=== PATIENT | male | born 1970 | race Caucasian/White ===

== ENCOUNTER → 2020-08-02 09:35 | Outpatient (BNVA) | payer MEDICAID, SELFPAY | PROVIDERS: PCP Nurse Practitioner Family; Visit Provider Urology | DX: Z76.89 Persons encountering health services in other specified circumstances (principal) ==

== ENCOUNTER 2021-04-23 07:53 | Outpatient (REF) | payer OTHER, SELFPAY ==
[2021-04-23 11:33] LABS: PSA,Total (Free>4and<10) 0.52 ng/mL (0.00-4.00)
== END 2021-04-23 07:54 | disposition home or self-care (01) ==
LOC: HO.LAB 07:53
PROVIDERS: Visit Provider Urology
DX: Z12.5 Encounter for screening for malignant neoplasm of prostate (principal); N40.1 Benign prostatic hyperplasia with lower urinary tract symptoms; N13.8 Other obstructive and reflux uropathy
CPT/HCPCS: 36415; 84153

== ENCOUNTER → 2021-05-06 08:38 | Outpatient (BNVA) | payer OTHER, SELFPAY | PROVIDERS: PCP Internal Medicine; Visit Provider Urology ==

== ENCOUNTER 2021-08-13 09:21 | Outpatient (REF) | payer OTHER, SELFPAY ==
[2021-08-13 09:50] LABS: MANUAL DIFF FLAG NO
[2021-08-13 09:58] LABS: Hematocrit 45.8 % (42.0-52.0); Hemoglobin 16.1 g/dl (14.0-18.0); Mean Corpuscular HGB Conc 35.2 g/dl (31.0-36.0); Mean Corpuscular Volume 91.1 fL (80.0-98.0); Red Blood Count 5.03 X10*6/uL (4.60-5.80); White Blood Count 6.6 X10*3/uL (4.8-10.8)
[2021-08-13 09:59] LABS: Basophils Absolute Auto 0.1 X10*3/uL (0.0-0.2); Basophils Percent Auto 0.8 % (0-2); Eosinophils Absolute Auto 0.4 X10*3/uL (0.0-0.4); Eosinophils Percent Auto 6.4 % (0-4); Imm Gran Abs Auto 0.02 X10*3/uL (0.00-0.03); Imm Gran Pct Auto 0.3 % (0.0-0.4); Lymphocytes Absolute Auto 2.1 X10*3/uL (1.2-4.9); Lymphocytes Percent Auto 31.6 % (20-40); Mean Platelet Volume 10.1 fL (9.4-12.4); Monocytes Absolute Auto 0.5 X10*3/uL (0.1-1.2); Neutrophils Absolute Auto 3.5 x10*3/uL (2.0-8.3); Neutrophils Percent Auto 53.9 % (45-73); Platelet Count 184 X10*3/uL (160-400); Red Cell Distribution Width 12.5 % (11.0-16.0)
--- NOTE | 2021-08-13 10:16 | ECG_ITS ---
Test Reason : qtc check Blood Pressure : / mmHG Vent. Rate : 108 BPM Atrial Rate : 108 BPM P-R Int : 114 ms QRS Dur : 070 ms QT Int : 320 ms P-R-T Axes : 047 010 016 degrees QTc Int : 428 ms Sinus tachycardia Cannot rule out Inferior infarct , age undetermined Abnormal ECG When compared with ECG of 03-DEC-2017 07:28, No significant change was found Referred By: MITALI MOORE Electronically Signed By:Kelvin Ramírez
[2021-08-13 10:54] LABS: Estimated Average Glucose 126 mg/dL
[2021-08-13 11:11] LABS: Alanine Aminotransferase 30 U/L (0-40); Albumin Level 4.4 g/dL (3.5-5.0); Alkaline Phosphatase 89 U/L (39-117); Anion Gap 15 (12-20); Aspartate Amino Transferase 25 U/L (5-37); Bilirubin Total 0.8 mg/dL (0.0-1.0); Blood Urea Nitrogen 14 mg/dL (9-16); Calcium 9.7 mg/dL (8.4-10.2); Carbon Dioxide 23 mmol/L (22-29); Chloride 106 mmol/L (96-108); Cholesterol 152 mg/dL; Estimated Glomerular Filt Rate > 60; Glucose Random 172 mg/dL (60-115); HDL Cholesterol 46 mg/dL; LDL Cholesterol Calculated 69 mg/dl; Potassium 4.6 mmol/L (3.3-5.1); Sodium 139 mmol/L (135-145); Total Protein 7.4 g/dL (6.5-8.0); Triglycerides 188 mg/dL
[2021-08-13 11:12] LABS: Thyroid Stimulating Hormone 1.58 uIU/mL (0.32-4.0)
[2021-08-13 11:29] LABS: Creatinine Urine 76.88 mg/dL; Microalbum/Creatinine Ratio Ur 6.5 ug/mg cr
== END 2021-08-13 09:22 | disposition home or self-care (01) ==
LOC: HO.LAB 09:21
PROVIDERS: Absent Provider Clinical Nurse Specialist Psychiatric/Mental Health; PCP Internal Medicine; Visit Provider Internal Medicine
DX: Z00.00 Encounter for general adult medical examination without abnormal findings (principal); E11.9 Type 2 diabetes mellitus without complications; E78.00 Pure hypercholesterolemia, unspecified; G43.909 Migraine, unspecified, not intractable, without status migrainosus; I10 Essential (primary) hypertension; N40.1 Benign prostatic hyperplasia with lower urinary tract symptoms; F25.1 Schizoaffective disorder, depressive type
CPT/HCPCS: 36415; 80053; 80061; 82043; 83036; 84443; 85025; 93005

== ENCOUNTER 2021-11-11 10:07 | Outpatient (REF) | payer OTHER, SELFPAY ==
[2021-11-11 11:03] LABS: Estimated Average Glucose 117 mg/dL; Hemoglobin A1c % 5.7 %
[2021-11-11 11:25] LABS: Alanine Aminotransferase 23 U/L (0-40); Albumin Level 4.5 g/dL (3.5-5.0); Alkaline Phosphatase 79 U/L (39-117); Anion Gap 14 (12-20); Aspartate Amino Transferase 21 U/L (5-37); Blood Urea Nitrogen 7 mg/dL (9-16); Calcium 9.7 mg/dL (8.4-10.2); Carbon Dioxide 26 mmol/L (22-29); Chloride 103 mmol/L (96-108); Estimated Glomerular Filt Rate > 60; Glucose Random 148 mg/dL (60-115); Potassium 4.8 mmol/L (3.3-5.1); Sodium 138 mmol/L (135-145); Total Protein 7.3 g/dL (6.5-8.0)
== END 2021-11-11 10:08 | disposition home or self-care (01) ==
LOC: HO.LAB 10:07
PROVIDERS: PCP Internal Medicine; Visit Provider Internal Medicine
DX: E11.9 Type 2 diabetes mellitus without complications (principal); E78.00 Pure hypercholesterolemia, unspecified; G43.909 Migraine, unspecified, not intractable, without status migrainosus; I10 Essential (primary) hypertension
CPT/HCPCS: 36415; 80053; 83036

== ENCOUNTER 2022-03-10 08:26 | Outpatient (REF) | payer OTHER, SELFPAY ==
[2022-03-10 09:21] LABS: Estimated Average Glucose 114 mg/dL; Hemoglobin A1c % 5.6 %
[2022-03-10 09:55] LABS: Alanine Aminotransferase 27 U/L (0-40); Albumin Level 4.5 g/dL (3.5-5.0); Alkaline Phosphatase 83 U/L (39-117); Anion Gap 17 (12-20); Aspartate Amino Transferase 26 U/L (5-37); Bilirubin Total 0.6 mg/dL (0.0-1.0); Blood Urea Nitrogen 7 mg/dL (9-16); Carbon Dioxide 22 mmol/L (22-29); Chloride 105 mmol/L (96-108); Estimated Glomerular Filt Rate > 60; Glucose Random 140 mg/dL (60-115); Potassium 4.2 mmol/L (3.3-5.1); Sodium 140 mmol/L (135-145); Total Protein 7.2 g/dL (6.5-8.0)
== END 2022-03-10 08:27 | disposition home or self-care (01) ==
LOC: HO.LAB 08:26
PROVIDERS: PCP Internal Medicine; Visit Provider Internal Medicine
DX: E11.9 Type 2 diabetes mellitus without complications (principal); I10 Essential (primary) hypertension
CPT/HCPCS: 36415; 80053; 83036

== ENCOUNTER → 2022-04-09 13:27 | Outpatient (BNVA) | payer OTHER, SELFPAY | PROVIDERS: PCP Internal Medicine; Visit Provider Urology | DX: N40.1 Benign prostatic hyperplasia with lower urinary tract symptoms (principal); N13.8 Other obstructive and reflux uropathy; E11.69 Type 2 diabetes mellitus with other specified complication; N52.1 Erectile dysfunction due to diseases classified elsewhere | CPT/HCPCS: 51798; 99212 ==

== ENCOUNTER 2022-10-09 08:13 | Outpatient (REF) | payer OTHER, SELFPAY ==
[2022-10-09 08:30] LABS: MANUAL DIFF FLAG NO
[2022-10-09 08:56] LABS: Basophils Absolute Auto 0.1 X10*3/uL (0.0-0.2); Basophils Percent Auto 1.2 % (0-2); Eosinophils Absolute Auto 0.4 X10*3/uL (0.0-0.4); Eosinophils Percent Auto 7.5 % (0-4); Hematocrit 45.1 % (42.0-52.0); Hemoglobin 15.8 g/dl (14.0-18.0); Imm Gran Abs Auto 0.02 X10*3/uL (0.00-0.03); Imm Gran Pct Auto 0.3 % (0.0-0.4); Lymphocytes Absolute Auto 2.1 X10*3/uL (1.2-4.9); Mean Corpuscular Hemoglobin 31.3 pg (27.0-33.0); Mean Corpuscular Volume 89.3 fL (80.0-98.0); Mean Platelet Volume 10.5 fL (9.4-12.4); Monocytes Absolute Auto 0.4 X10*3/uL (0.1-1.2); Monocytes Percent Auto 7.3 % (2-11); Neutrophils Absolute Auto 2.7 x10*3/uL (2.0-8.3); Neutrophils Percent Auto 47.7 % (45-73); Platelet Count 188 X10*3/uL (160-400); Red Blood Count 5.05 X10*6/uL (4.60-5.80); Red Cell Distribution Width 12.4 % (11.0-16.0); White Blood Count 5.7 X10*3/uL (4.8-10.8)
[2022-10-09 09:06] LABS: Estimated Average Glucose 117 mg/dL; Hemoglobin A1c % 5.7 %
[2022-10-09 09:40] LABS: Alanine Aminotransferase 21 U/L (0-40); Albumin Level 4.3 g/dL (3.5-5.0); Alkaline Phosphatase 72 U/L (39-117); Anion Gap 13 (12-20); Aspartate Amino Transferase 21 U/L (5-37); Bilirubin Total 0.9 mg/dL (0.0-1.0); Blood Urea Nitrogen 10 mg/dL (9-16); Calcium 8.9 mg/dL (8.4-10.2); Carbon Dioxide 25 mmol/L (22-29); Chloride 103 mmol/L (96-108); Cholesterol 133 mg/dL; Estimated Glomerular Filt Rate > 60; Glucose Random 118 mg/dL (60-115); HDL Cholesterol 42 mg/dL; LDL Cholesterol Calculated 67 mg/dl; Potassium 4.7 mmol/L (3.3-5.1); Sodium 136 mmol/L (135-145); Total Protein 6.9 g/dL (6.5-8.0); Triglycerides 122 mg/dL
[2022-10-09 09:43] LABS: Creatinine Urine 36.41 mg/dL; Microalbumin Urine < 5.0 mg/L
== END 2022-10-09 08:14 | disposition home or self-care (01) ==
LOC: HO.LAB 08:13
PROVIDERS: PCP Internal Medicine; Visit Provider Internal Medicine
DX: E11.9 Type 2 diabetes mellitus without complications (principal); E78.00 Pure hypercholesterolemia, unspecified; I10 Essential (primary) hypertension; R51.9 Headache, unspecified
CPT/HCPCS: 36415; 80053; 80061; 82043; 83036; 85025

== ENCOUNTER 2022-12-15 13:21 | Emergency (ER) | payer OTHER, SELFPAY ==
--- NOTE | ~2022-12-15 | XR_ITS ---
EXAMINATION: XR HIP, LEFT CLINICAL INFORMATION: Left hip pain, status post fall. COMPARISON: None available. TECHNIQUE: Two views of the left hip. FINDINGS: Bones and soft tissues are normal. No fracture. Alignment is anatomic. Hip joint space is maintained. XR/XR hip LT w PEL1V IMPRESSION: Normal left hip.
[2022-12-15 13:25] VITALS: BP 137/83; PULSE 105; RESP 18; TEMP 37.6; O2SAT 98; BMI 38.7
--- NOTE | 2022-12-15 13:25 | ED_ITS ---
HPI - Extremity Injury (Lower) General Chief Complaint: Extremity Injury, Lower Stated Complaint: L hip inj Time Seen by Provider: 12/15/22 13:53 History of Present Illness HPI Narrative: patient complains of left hip pain after a fall in the bathroom 1 week ago, it still hurts but he is able easily to walk on it in move it, he denies any back pain he has no numbness weakness or tingling no radiation of the pain no abdominal pain no chest pain no neck pain no back pain, no changes to bowel or bladder Related Data Home Medications Medication Instructions Recorded Confirmed aspirin 325 mg tablet 325 mg PO DAILY 05/06/21 atorvastatin 40 mg tablet 40 mg PO DAILY 05/06/21 benztropine 0.5 mg tablet 0.5 mg PO BID 05/06/21 blood sugar diagnostic (FreeStyle #10 ea 05/06/21 Lite Strips) [id number]-[id number] 1 cap PO Q6H PRN 05/06/21 50 mg-325 mg-40 mg capsule enalapril maleate 5 mg tablet 5 mg PO DAILY 05/06/21 ergocalciferol (vitamin D2) 1,250 1,250 mcg PO QWEEK 05/06/21 mcg (50,000 unit) capsule (Vitamin D2) fluoxetine 20 mg capsule 40 mg PO QAM 05/06/21 lancets 28 gauge (FreeStyle #100 ea 05/06/21 Lancets) loratadine 10 mg tablet 10 mg PO DAILY 05/06/21 lorazepam 0.5 mg tablet 0.5 mg PO BID PRN 05/06/21 metformin 750 mg tablet,extended 750 mg PO BID 05/06/21 release 24 hr niacin 500 mg tablet,extended 1,000 mg PO BEDTIME 05/06/21 release 24 hr omeprazole 20 mg capsule,delayed 20 mg PO DAILY 05/06/21 release perphenazine 4 mg tablet 4 mg PO BEDTIME 05/06/21 perphenazine 8 mg tablet 8 mg PO BID 05/06/21 trazodone 100 mg tablet 200 mg PO BEDTIME PRN 05/06/21 ziprasidone HCl 80 mg capsule 80 mg PO BID 05/06/21 ibuprofen 600 mg tablet 600 mg PO TID 04/09/22 lisinopril 10 1 tab PO DAILY 04/09/22 mg-hydrochlorothiazide 12.5 mg tablet propranolol 120 mg capsule,24 120 mg PO DAILY 04/09/22 hr,extended release Previous Rx's Medication Instructions Recorded tamsulosin 0.4 mg capsule 0.4 mg PO DAILY 90 days #90 caps 04/09/22 acetaminophen 325 mg capsule 650 mg PO QID PRN pain #30 caps 12/15/22 Allergies Allergy/AdvReac Type Severity Reaction Status Date / Time clindamycin Allergy Mild Severe Verified 04/09/22 13:30 Headache lactose [Lactose] AdvReac Mild LACTOSE Verified 04/09/22 13:30 INTOLERANT SEASONAL ALLERGIES Allergy Intermediate SNEEZING Uncoded 04/11/20 16:33 [facility] Past Medical History Source: nursing notes reviewed Medical History BPH (benign prostatic hyperplasia) BPH loc w urin obs/LUTS Diabetes mellitus Erectile dysfunction Essential hypertension GERD (gastroesophageal reflux disease) Migraine Schizophrenia Shortness of breath Family History Family History Father No problems noted. Mother Heart failure CVD (cardiovascular disease) Stroke Social History Social History Advance Directives: No Advance Directives Information Provided: Yes Physical Exam Vital Signs: Vital Signs: Last Vital Signs Temp 99.7 F 12/15/22 13:25 Pulse 105 H 12/15/22 13:25 Resp 18 12/15/22 13:25 BP 137/83 12/15/22 13:25 Pulse Ox 98 12/15/22 13:25 O2 Del Method Room Air 12/15/22 13:25 BMI result Body Mass Index 38.7 general appearance comfortable no distress Head is normocephalic atraumatic Neck is supple Chest wall nontender Abdomen soft nontender There is no evidence of hernia There is tenderness over the lateral aspect of upper thigh hip and pelvis, patient can easily bear weight on the left leg he has full The back there is no tenderness of soft tissue or spine and back has full range of motion Skin no lacerations or contusions Neuro no focal motor or sensory deficits, gait and balance are normal Course Course Course Narrative: RME: 52yo M w/PMHx BPH, HTN, GERD, schizophrenia, c/o left hip pain s/p slip and fall on soap Wednesday after shower. denies head trauma or LOC. denies sx prior to fall L hip w/o deformity, +mild ttp, ambulating with steady gait w/o difficulty. no erythema/ecchymosis XRs ordered Full HPI, ROS and PE to be performed by primary ED provider. Left hip x-ray was negative, exam is consistent with soft tissue injury in the area of the left hip, patient ambulates easily and has full range of motion in the leg no evidence of any significant injury now Discharge Plan Discharge Clinical Impression: Contusion of hip, left Patient Disposition: Home, Self-Care Additional Instructions: Left hip x-ray was normal there is no broken bone This is likely soft tissue bruising or strain of the muscles in the area of the left hip and should get better on its own in a reasonable amount of time Follow with your doctor orthopedist as needed Return any concerns Prescriptions: New acetaminophen 325 mg capsule 650 mg PO QID PRN (Reason: pain) Qty: 30 0RF No Action perphenazine 4 mg tablet 4 mg PO BEDTIME omeprazole 20 mg capsule,delayed release(DR/EC) 20 mg PO DAILY (DME) lancets [FreeStyle Lancets] 28 gauge misc See Rx Instructions topical BID Qty: 100 Rx Instructions: As directed fluoxetine 20 mg capsule 40 mg PO QAM (DME) FreeStyle Lite Strips Strip See Rx Instructions Not Applicable BID Qty: 10 Rx Instructions: As directed metformin 750 mg tablet extended release 24 hr 750 mg PO BID loratadine 10 mg tablet 10 mg PO DAILY perphenazine 8 mg tablet 8 mg PO BID trazodone 100 mg tablet 200 mg PO BEDTIME PRN lorazepam 0.5 mg tablet 0.5 mg PO BID PRN niacin 500 mg tablet extended release 24 hr 1,000 mg PO BEDTIME aspirin 325 mg tablet 325 mg PO DAILY benztropine 0.5 mg tablet 0.5 mg PO BID atorvastatin 40 mg tablet 40 mg PO DAILY ziprasidone HCl 80 mg capsule 80 mg PO BID enalapril maleate 5 mg tablet 5 mg PO DAILY bududwqvei-rfygbcllwrsgk-amzi 50-325-40 mg capsule 1 cap PO Q6H PRN ergocalciferol (vitamin D2) [Vitamin D2] 1,250 mcg (50,000 unit) capsule 1,250 mcg PO QWEEK ibuprofen 600 mg tablet 600 mg PO TID lisinopril-hydrochlorothiazide 10-12.5 mg tablet 1 tab PO DAILY propranolol 120 mg capsule,extended release 24 hr 120 mg PO DAILY tamsulosin 0.4 mg capsule 0.4 mg PO DAILY 90 Days Qty: 90 3RF Referrals: Jean Claude Edgar MD [Physician] - ( left hip pain)
== END 2022-12-15 15:43 | disposition home or self-care (01) ==
PROVIDERS: Emergency Provider Emergency Medicine Emergency Medical Services; PCP Internal Medicine
DX: S70.02XA Contusion of left hip, initial encounter (principal); W18.30XA Fall on same level, unspecified, initial encounter; Y93.9 Activity, unspecified; Y92.002 Bathroom of unspecified non-institutional (private) residence as the place of occurrence of the external cause; M25.552 Pain in left hip; Z91.81 History of falling; E11.9 Type 2 diabetes mellitus without complications; I10 Essential (primary) hypertension; K21.9 Gastro-esophageal reflux disease without esophagitis; N40.0 Benign prostatic hyperplasia without lower urinary tract symptoms; F20.9 Schizophrenia, unspecified
CPT/HCPCS: 73502; 99283

== ENCOUNTER 2023-01-05 08:27 | Emergency (ER) | payer OTHER, SELFPAY ==
[2023-01-05 08:29] VITALS: BP 148/88; PULSE 103; RESP 20; TEMP 36.3; O2SAT 97; BMI 40.3
--- NOTE | 2023-01-05 09:03 | ED_ITS ---
HPI - Back Pain/Injury General Chief Complaint: Back Pain/Injury Stated Complaint: Back Pain S/P Injury 01/01/23 Time Seen by Provider: 01/05/23 09:01 Source: patient Mode of arrival: ambulatory Limitations: no limitations History of Present Illness HPI Narrative: 52-year-old male history of BPH, rectal dysfunction, diabetes presenting to the emergency department complaints of mid to lower back pain status post heavy lifting on Wednesday, back pain is constant in nature however worse with movement better at rest. Patient reports this started after helping his mother move, he has never had back issues in the past. Patient denies numbness, tingling, weakness, saddle paresthesias, urinary/ bowel incontinence / retention, fevers, chills, history of IV drug use and malignancy. Related Data Home Medications Medication Instructions Recorded Confirmed aspirin 325 mg tablet 325 mg PO DAILY 05/06/21 atorvastatin 40 mg tablet 40 mg PO DAILY 05/06/21 benztropine 0.5 mg tablet 0.5 mg PO BID 05/06/21 blood sugar diagnostic (FreeStyle #10 ea 05/06/21 Lite Strips) [id number]-[id number]-[id number] 1 cap PO Q6H PRN 05/06/21 50 mg-325 mg-40 mg capsule enalapril maleate 5 mg tablet 5 mg PO DAILY 05/06/21 ergocalciferol (vitamin D2) 1,250 1,250 mcg PO QWEEK 05/06/21 mcg (50,000 unit) capsule (Vitamin D2) fluoxetine 20 mg capsule 40 mg PO QAM 05/06/21 lancets 28 gauge (FreeStyle #100 ea 05/06/21 Lancets) loratadine 10 mg tablet 10 mg PO DAILY 05/06/21 lorazepam 0.5 mg tablet 0.5 mg PO BID PRN 05/06/21 metformin 750 mg tablet,extended 750 mg PO BID 05/06/21 release 24 hr niacin 500 mg tablet,extended 1,000 mg PO BEDTIME 05/06/21 release 24 hr omeprazole 20 mg capsule,delayed 20 mg PO DAILY 05/06/21 release perphenazine 4 mg tablet 4 mg PO BEDTIME 05/06/21 perphenazine 8 mg tablet 8 mg PO BID 05/06/21 trazodone 100 mg tablet 200 mg PO BEDTIME PRN 10/12/21 ziprasidone HCl 80 mg capsule 80 mg PO BID 05/06/21 ibuprofen 600 mg tablet 600 mg PO TID 04/09/22 lisinopril 10 1 tab PO DAILY 04/09/22 mg-hydrochlorothiazide 12.5 mg tablet propranolol 120 mg capsule,24 120 mg PO DAILY 04/09/22 hr,extended release Previous Rx's Medication Instructions Recorded tamsulosin 0.4 mg capsule 0.4 mg PO DAILY 90 days #90 caps 04/09/22 acetaminophen 325 mg capsule 650 mg PO QID PRN pain #30 caps 12/15/22 cyclobenzaprine 10 mg tablet 10 mg PO BEDTIME PRN muscle spasm 01/05/23 #7 tabs ketorolac 10 mg tablet 10 mg PO TID PRN pain 5 days #15 01/05/23 tabs lidocaine 5 % topical patch 1 patch topical DAILY PRN pain #15 01/05/23 ea Allergies Allergy/AdvReac Type Severity Reaction Status Date / Time clindamycin Allergy Mild Severe Verified 01/05/23 08:33 Headache lactose [Lactose] AdvReac Mild LACTOSE Verified 01/05/23 08:33 INTOLERANT SEASONAL ALLERGIES Allergy Intermediate SNEEZING Uncoded 04/11/20 16:33 Review of Systems Review of Systems: Constitutional : No Weight loss, No Fever, No Chills, ENT/Mouth : No Hearing loss, No Ear Pain, No Nasal Congestion, No Sinus Pain, No Hoarseness, No sore throat, No Rhinorrhea, No Swallowing Difficulty Cardiovascular : No Chest Pain, No SOB Respiratory : No Cough, No Dyspnea Gastrointestinal : No Nausea, No Vomiting, No Diarrhea, No abdominal Pain, No Hematochezia, No Melena Genitourinary : No Dysuria, No Urinary Frequency, No Hematuria, No Urinary Incontinence, Musculoskeletal : positive back pain Skin : No Skin Lesions, No rash Neuro : No Weakness, No Numbness, No Paresthesias, no loss of bowel or bladder incontinence, no saddle anesthesia Yes all other systems are reviewed and are negative FORMERLY [facility], [facility] Past Medical History Attestation statement: The following information was validated with the patient. Source: old records reviewed and nursing notes reviewed Medical History BPH (benign prostatic hyperplasia) BPH loc w urin obs/LUTS Diabetes mellitus Erectile dysfunction Essential hypertension GERD (gastroesophageal reflux disease) Migraine Schizophrenia Shortness of breath Family History Family History Father No problems noted. Mother Heart failure CVD (cardiovascular disease) Stroke Social History Social History Advance Directives: No Physical Exam Vital Signs: Vital Signs: Last Vital Signs Temp 97.3 F 01/05/23 08:29 Pulse 103 H 01/05/23 08:29 Resp 20 01/05/23 08:29 BP 148/88 H 01/05/23 08:29 Pulse Ox 97 01/05/23 08:29 O2 Del Method Room Air 01/05/23 08:29 BMI result Body Mass Index 40.3 vss Appearance: Alert.? Oriented X3.? No acute distress.? Head: Normocephalic, atraumatic, no step-offs or deformities Eyes: Pupils equal, round and reactive to light.? Neck: Normal inspection.? Neck supple.? CVS: Normal heart rate and rhythm.? Pulses normal.? Respiratory: No respiratory distress.? Breath sounds normal.? Abdomen: Soft and nontender.? Skin: Skin warm and dry.? Normal skin color.? Normal skin turgor.? Extremities: No lower extremity edema.? No calf ttp. 5/5 strength to bilateral upper and lower extremities Back: No midline tenderness, no C-spine tenderness, full range of motion, no CVA tenderness bilaterally + b/l Thoracic and lumbar paraspinous tenderness. Neuro: Oriented X 3.? No motor deficit.? No sensory deficit. CN 2-12 intact . Ambulating with steady gait normal coordination. No saddle paresthesias. Course Reevaluation(s) Reevaluation #1: Patient feeling better, ambulatory around the department without difficulty. Will give him follow-up with [facility]. Again no indication for imaging as this is atraumatic back pain. Likely herniated disc or lumbar sprain/ strain/ spasm. No red flag symptoms. Educated patient on diagnosis and treatment plan, answered all question, patient verbalizes understanding. At this time patient will be discharged home, advised to return with new or worsening symptoms. Educated on worrisome signs and symptoms and when to return. At this time I feel comfortable discharge home. Time: 11:36 Medications Administered Discontinued Medications Generic Name Dose Route Start Last Admin Trade Name Freq PRN Reason Stop Dose Admin Cyclobenzaprine HCl 10 mg 01/05/23 09:06 01/05/23 09:16 Cyclobenzaprine Hcl 10 Mg Tablet PO 01/05/23 09:07 10 mg ONCE ONE Administration Ketorolac Tromethamine 30 mg 01/05/23 09:06 01/05/23 09:19 Ketorolac Tromethamine 15 Mg/Ml Vial IM 01/05/23 09:07 30 mg ONCE ONE Administration Lidocaine 1 patch 01/05/23 09:06 01/05/23 09:17 Lidocaine 4 % Patch Adh..Patch TRANSDERMA 01/05/23 09:07 1 patch ONCE ONE Administration Protocol Lidocaine 1 patch 01/05/23 09:13 01/05/23 09:17 Lidocaine 4 % Patch Adh..Patch TRANSDERMA 01/05/23 09:14 1 patch ONCE ONE Administration Protocol Morphine Sulfate 15 mg 01/05/23 10:18 01/05/23 10:59 Morphine Sulfate Immed Release 15 Mg Tablet PO 01/05/23 10:19 15 mg ONCE ONE Administration Medical Decision Making Medical Decision Making [facility] Narrative: [id number] 52-year-old male presents with back pain status post heavy lifting on Wednesday. Physical exam significant for b/l Thoracic and lumbar paraspinous tenderness. likely lumbago versus herniated disc versus lumbar/ thoracic sprain/ strain. Unlikely cauda equina, cord compression, epidural abscess. Plan Toradol, cyclobenzaprine and Lidoderm patch. Differential Diagnosis Differential Diagnoses: The differential diagnosis associated with the presentation includes likely lumbago versus herniated disc versus lumbar/ thoracic sprain/ strain. Unlikely cauda equina, cord compression, epidural abscess. Tests considered The following testing was considered but not selected: Atraumatic back pain no need for imaging. No red flag symptoms no need for MRI. Core Measures AMI core measures followed: Yes Measure exclusions: not indicated Discharge Plan Discharge Clinical Impression: Thoracolumbar back pain Patient Disposition: Home, Self-Care Instructions: Back Pain (ED) Additional Instructions: Take your medications as prescribed. If you were prescribed antibiotics today, it is important that you take your medication to their entirety, do not skip any doses, do not finish them early. Follow-up with your primary care provider this week. Return to the emergency department with new or worsening symptoms. Such as fevers, chills, chest pain, shortness of breath, nausea, vomiting, dizziness, headache, vision changes, lethargy In case of emergency call 911 Prescriptions: New cyclobenzaprine 10 mg tablet 10 mg PO BEDTIME PRN (Reason: muscle spasm) Qty: 7 0RF ketorolac 10 mg tablet 10 mg PO TID PRN (Reason: pain) 5 Days Qty: 15 0RF lidocaine 5 % adhesive patch,medicated 1 patch topical DAILY PRN (Reason: pain) Qty: 15 0RF Rx Instructions: leave on most painful area for up to 12 hrs No Action acetaminophen 325 mg capsule 650 mg PO QID PRN (Reason: pain) Qty: 30 0RF perphenazine 4 mg tablet 4 mg PO BEDTIME omeprazole 20 mg capsule,delayed release(DR/EC) 20 mg PO DAILY (DME) lancets [FreeStyle Lancets] 28 gauge misc See Rx Instructions topical BID Qty: 100 Rx Instructions: As directed fluoxetine 20 mg capsule 40 mg PO QAM (DME) FreeStyle Lite Strips Strip See Rx Instructions Not Applicable BID Qty: 10 Rx Instructions: As directed metformin 750 mg tablet extended release 24 hr 750 mg PO BID loratadine 10 mg tablet 10 mg PO DAILY perphenazine 8 mg tablet 8 mg PO BID trazodone 100 mg tablet 200 mg PO BEDTIME PRN lorazepam 0.5 mg tablet 0.5 mg PO BID PRN niacin 500 mg tablet extended release 24 hr 1,000 mg PO BEDTIME aspirin 325 mg tablet 325 mg PO DAILY benztropine 0.5 mg tablet 0.5 mg PO BID atorvastatin 40 mg tablet 40 mg PO DAILY ziprasidone HCl 80 mg capsule 80 mg PO BID enalapril maleate 5 mg tablet 5 mg PO DAILY tpkjrxqygr-ppbfudmxsvxry-xwvp 50-325-40 mg capsule 1 cap PO Q6H PRN ergocalciferol (vitamin D2) [Vitamin D2] 1,250 mcg (50,000 unit) capsule 1,250 mcg PO QWEEK ibuprofen 600 mg tablet 600 mg PO TID lisinopril-hydrochlorothiazide 10-12.5 mg tablet 1 tab PO DAILY propranolol 120 mg capsule,extended release 24 hr 120 mg PO DAILY tamsulosin 0.4 mg capsule 0.4 mg PO DAILY 90 Days Qty: 90 3RF Referrals: [facility] [Provider Group] - 1 week Pema Arango MD [Primary Care Provider] - ED Physician,Generic [Physician] - 2 days Stand Alone Forms: Work/School Release
[2023-01-05] MEDS: Cyclobenzaprine HCl 10 MG TABLET PO (09:16)
[2023-01-05] MEDS: Lidocaine 4 % Patch ADH..PATCH 1 PATCH TRANSDERMA ×2 (09:17)
[2023-01-05] MEDS: Ketorolac Tromethamine 15 MG/ML VIAL 30 MG IM (09:19)
[2023-01-05] MEDS: Morphine Sulfate Immed Release 15 MG TABLET PO (10:59)
== END 2023-01-05 11:53 | disposition home or self-care (01) ==
PROVIDERS: Emergency Provider Emergency Medicine; PCP Internal Medicine
DX: M54.6 Pain in thoracic spine (principal); M54.50 Low back pain, unspecified
CPT/HCPCS: 96372; 99283; 99284; J1885

== ENCOUNTER 2023-01-11 08:33 | Outpatient (REF) | payer OTHER, SELFPAY ==
[2023-01-11 09:00] LABS: Estimated Average Glucose 114 mg/dL; Hemoglobin A1c % 5.6 %
[2023-01-11 09:25] LABS: Alanine Aminotransferase 23 U/L (0-40); Albumin Level 4.3 g/dL (3.5-5.0); Alkaline Phosphatase 89 U/L (39-117); Anion Gap 13 (12-20); Aspartate Amino Transferase 21 U/L (5-37); Bilirubin Total 0.7 mg/dL (0.0-1.0); Blood Urea Nitrogen 9 mg/dL (9-16); Calcium 9.7 mg/dL (8.4-10.2); Carbon Dioxide 25 mmol/L (22-29); Chloride 108 mmol/L (96-108); Estimated Glomerular Filt Rate > 60; Glucose Random 139 mg/dL (60-115); Potassium 4.1 mmol/L (3.3-5.1); Sodium 142 mmol/L (135-145); Total Protein 7.3 g/dL (6.5-8.0)
== END 2023-01-11 08:34 | disposition home or self-care (01) ==
LOC: HO.LAB 08:33
PROVIDERS: PCP Internal Medicine; Visit Provider Internal Medicine
DX: Z00.00 Encounter for general adult medical examination without abnormal findings (principal); E11.9 Type 2 diabetes mellitus without complications; E78.00 Pure hypercholesterolemia, unspecified; I10 Essential (primary) hypertension
CPT/HCPCS: 36415; 80053; 83036

== ENCOUNTER 2023-01-13 15:49 | Outpatient (REF) | payer OTHER, SELFPAY ==
--- NOTE | ~2023-01-13 | XR_ITS ---
EXAMINATION: XR THORACIC SPINE CLINICAL INFORMATION: Thoracic pain for 2 weeks. COMPARISON: PA and lateral views of the chest from 08/22/2018 TECHNIQUE: 3 views of the thoracic spine were obtained. FINDINGS: The thoracic vertebra have well preserved height and alignment. No compression fractures. No vertebral endplate erosions. No focal lytic or blastic lesion. The disc spaces are generally well-preserved. Multilevel osteophyte formation of the spine and chronic mild levocurvature of the thoracic spine. No evidence of paraspinal soft tissue mass. XR/XR thoracic spine 3V IMPRESSION: * No acute abnormalities. There are no compression fractures or focal lytic lesions of the thoracic spine. * There is chronic mild spondylosis of the thoracic spine.
== END 2023-01-13 15:50 | disposition home or self-care (01) ==
LOC: HO.XRAY 15:49
PROVIDERS: Visit Provider Nurse Practitioner Family
DX: M54.6 Pain in thoracic spine (principal)
CPT/HCPCS: 72072

== ENCOUNTER 2023-01-25 13:32 | Outpatient (REF) | payer OTHER, SELFPAY ==
--- NOTE | ~2023-01-25 | XR_ITS ---
EXAMINATION: XR HIP, LEFT CLINICAL INFORMATION: Pain in left hip COMPARISON: 12/15/2022 left hip. AP pelvis 05/04/2020. TECHNIQUE: AP view of the pelvis and 2 views of the left hip. FINDINGS: Small rounded pelvic calcifications are likely vascular. Bilateral hip joint spaces are symmetric on the AP view of the pelvis. Mild degenerative changes with lateral acetabular hypertrophic change left hip. XR/XR hip LT w PEL1V IMPRESSION: Mild degenerative changes left hip. Additional imaging with CT scan or MRI should be considered for better visualization as these modalities are much more sensitive for detection of fracture or other underlying pathology.
== END 2023-01-25 13:33 | disposition home or self-care (01) ==
LOC: HO.HOSX 13:32
PROVIDERS: Visit Provider Physician Assistant
DX: M76.892 Other specified enthesopathies of left lower limb, excluding foot (principal); M25.552 Pain in left hip
CPT/HCPCS: 73502; 99202

== ENCOUNTER 2023-03-04 15:00 | Outpatient (RCR) | payer OTHER, SELFPAY | END 2023-03-10 13:33 | disposition home or self-care (01) | LOC: HO.PT 15:00 | PROVIDERS: PCP Internal Medicine; Visit Provider Nurse Practitioner Family | DX: M54.6 Pain in thoracic spine (principal); M76.892 Other specified enthesopathies of left lower limb, excluding foot | CPT/HCPCS: 97110; 97140; 97162 ==

== ENCOUNTER 2023-04-05 08:10 | Outpatient (REF) | payer OTHER, SELFPAY ==
[2023-04-05 08:47] LABS: Estimated Average Glucose 120 mg/dL; Hemoglobin A1c % 5.8 % (<6.0)
[2023-04-05 09:09] LABS: Alanine Aminotransferase 23 U/L (0-40); Albumin Level 4.4 g/dL (3.5-5.0); Alkaline Phosphatase 90 U/L (39-117); Anion Gap 13 (12-20); Aspartate Amino Transferase 23 U/L (5-37); Bilirubin Total 0.8 mg/dL (0.0-1.0); Blood Urea Nitrogen 10 mg/dL (9-16); Calcium 9.1 mg/dL (8.4-10.2); Carbon Dioxide 26 mmol/L (22-29); Chloride 108 mmol/L (96-108); Estimated Glomerular Filt Rate > 60; Glucose Random 151 mg/dL (60-115); Potassium 4.6 mmol/L (3.3-5.1); Sodium 142 mmol/L (135-145); Total Protein 7.3 g/dL (6.5-8.0)
== END 2023-04-05 08:11 | disposition home or self-care (01) ==
LOC: HO.LAB 08:10
PROVIDERS: PCP Internal Medicine; Visit Provider Internal Medicine
DX: E11.9 Type 2 diabetes mellitus without complications (principal); I10 Essential (primary) hypertension; M54.50 Low back pain, unspecified
CPT/HCPCS: 36415; 80053; 83036

== ENCOUNTER 2023-04-06 13:33 | Outpatient (AMB) | payer OTHER, SELFPAY ==
--- NOTE | 2023-04-06 13:35 | A.OFFVIS_ITS ---
Intake Intake Visit Reasons: BPH- yearly follow up/PVR Intake Note: Patient is present for PVR Urology Med:Tamsulosin Antibiotic Allergy: Clindamycin Blood Thinner: Aspirn [facility]: Allergies clindamycin Allergy (Mild, Verified 01/25/23 13:46) Severe Headache lactose [Lactose] Adverse Reaction (Mild, Verified 01/25/23 13:46) LACTOSE INTOLERANT SEASONAL ALLERGIES Allergy (Intermediate, Uncoded 01/25/23 13:46) SNEEZING HPI HPI Comments History of Present Illness Details Phu is a pleasant male. He is seen for the following urologic conditions - lower urinary tract symptoms - erectile dysfunction Twelve month follow-up PVR 0 cc UA normal Continues with tamsulosin Is planning on purchasing penile vacuum pump later this year Reminded him of [facility] Lower urinary tract symptoms Current therapy tamsulosin Concurrent medical diagnosis includes diabetes Happy with current urinary performance Effective urinary stream and bladder emptying PSA - 04/15 0.5 No other investigations May follow in 12 months with PVR Erectile dysfunction Secondary to diabetes Not currently using medication Does have vacuum pump Not currently in a relationship PFSH Medical History BPH (benign prostatic hyperplasia) BPH loc w urin obs/LUTS Diabetes mellitus Erectile dysfunction Essential hypertension GERD (gastroesophageal reflux disease) Migraine Schizophrenia Shortness of breath Family History Father No problems noted. Mother Heart failure CVD (cardiovascular disease) Stroke Social History Current occupational status: disabled Review of Systems Const Denies chills and Denies fever(s) Card Reports no additional complaints and Denies syncope Resp Denies cough GI Denies abdominal pain and Denies heartburn Reports as per HPI and Denies change in libido Neuro Denies syncope Psych Denies change in libido Endo Denies change in libido Physical Exam Const General: cooperative, healthy appearing, comfortable and no acute distress Orientation/consciousness: patient oriented x3 HEENT Face and sinus: Yes normal facial exam Mouth: moist mucous membranes Neck Neck: Yes normal visual inspection, Yes full ROM and Yes trachea midline Chest Chest palpation & inspection: normal inspection of the chest Resp Effort & Inspection: normal respiratory effort, able to speak in complete sentences and no respiratory distress GI Inspection: Yes normal to inspection Back/Spine/Pelvis Cervical Spine: normal cervical lordosis Thoracic/Lumbar Spine: thoracic and lumbar spine normal to inspection Skin General skin exam: no rashes or lesions noted Neuro General: patient oriented x3, gait normal, tone normal and moves all extremities Extrem General: Yes normal to inspection and Yes capillary refill normal Results AMB Urinalysis, Automated UA Leukoctes 0 Geo/uL Last Edit by Gisell Cardona [facility] on 04/06/23 13:48 UA Nitrite Negative Last Edit by Gisell Cardona A on 04/06/23 13:48 UA Urobilinogen 3.5 mg/dL Last Edit by Gisell Cardona [facility] on 04/06/23 13:4 8 UA Protein 0 mg/dL Last Edit by Gisell Cardona [facility] on 04/06/23 13:48 UA pH 6 Last Edit by Gisell Cardona [facility] on 04/06/23 13:48 UA Blood 0 Freedom/uL Last Edit by Gisell Cardona [facility] on 04/06/23 13:48 UA Specific [place] 1.010 Last Edit by Gisell Cardona [facility] on 04/06/23 13: 48 UA Ketone Negative Last Edit by Gisell Cardona [facility] on 04/06/23 13:48 UA Bilirubin 0 mg/dL Last Edit by Gisell Cardona [facility] on 04/06/23 13:48 UA Glucose 0 mg/dL Last Edit by Gisell Cardona [facility] on 04/06/23 13:48 Results Reviewed Results Reviewed: Laboratory Last Values Urine pH (Auto) 6 04/06/23 13:46 Specific [place] (Auto) 1.010 04/06/23 13:46 Urine Protein (Auto) 0 mg/dL 04/06/23 13:46 Glucose (UA)(Auto) 0 mg/dL 04/06/23 13:46 Urine Ketones (Auto) Negative 04/06/23 13:46 Urine Blood (Auto) 0 [place]/uL 04/06/23 13:46 Urine Nitrite (Auto) Negative 04/06/23 13:46 Urine Bilirubin (Auto) 0 mg/dL 04/06/23 13:46 Urine Urobilinogen (Auto) 3.5 mg/dL 04/06/23 13:46 Leukocyte Esterase (Auto) 0 Geo/uL 04/06/23 13:46 Assessment & Plan Assessment & Plan (1) Erectile dysfunction associated with type 2 diabetes mellitus: Code(s): E11.69 - Type 2 diabetes mellitus with other specified complication; N52.1 - Erectile dysfunction due to diseases classified elsewhere (2) BPH loc w urin obs/LUTS: Code(s): N40.1 - Benign prostatic hyperplasia with lower urinary tract symptoms Plan Twelve month follow-up Orders: Orders AMB Urinalysis Automated Today Z13.9 - Encounter for screening, unspecified AMB Post Void Residual by ultrasound Today N40.1 - Benign prostatic hyperplasia with lower urinary tract symptoms Prostate Specific Antigen 364 Days N40.1 - Benign prostatic hyperplasia with lower urinary tract symptoms Patient Instructions: Imaging studies, laboratory and physical exam results were discussed and reviewed in detail. No major barriers to patient understanding were identified. An opportunity to ask questions regarding the treatment plan was provided. All questions were answered. The patient expressed understanding and agreement with the above treatment plan. The patient is aware they should contact our office by phone for worsening of their current condition or the appearance of new urologic symptoms. Compliance is encouraged with any medications and followup testing that is ordered. It is a privilege to participate in the urologic care of your patient. If you have any questions or concerns regarding treatment for the above conditions, or other urologic issues, please do not hesitate to contact me. The office telephone contact is [phone]. This note is constructed using voice recognition software. While every effort has been made to ensure accuracy inspector weights and measures errors may have been included. Yours sincerely, Dr Flaco Valdivia MD, [facility] - Urology Providers of Expert, Compassionate Care for the Genitourinary System Coding Level of Care Code Est Pt Level 4 (24199) Diagnoses Erectile dysfunction associated with type 2 diabetes mellitus E11.69; N52.1 BPH loc w urin obs/LUTS N40.1
== END 2023-04-06 13:55 | disposition home or self-care (01) ==
PROVIDERS: PCP Internal Medicine; Visit Provider Urology
DX: E11.69 Type 2 diabetes mellitus with other specified complication (principal); N52.1 Erectile dysfunction due to diseases classified elsewhere; N40.1 Benign prostatic hyperplasia with lower urinary tract symptoms; Z13.9 Encounter for screening, unspecified
CPT/HCPCS: 99214

== ENCOUNTER → 2023-04-06 13:33 | Outpatient (BNVA) | payer OTHER, SELFPAY | PROVIDERS: Visit Provider Urology | DX: N40.1 Benign prostatic hyperplasia with lower urinary tract symptoms (principal); N13.8 Other obstructive and reflux uropathy; E11.69 Type 2 diabetes mellitus with other specified complication; N52.1 Erectile dysfunction due to diseases classified elsewhere; Z79.899 Other long term (current) drug therapy | CPT/HCPCS: 81003; 99212 ==

== ENCOUNTER 2023-06-21 13:00 | Outpatient (RCR) | payer OTHER, SELFPAY | END 2023-07-13 09:12 | disposition home or self-care (01) | LOC: HO.PT 13:00 | PROVIDERS: PCP Internal Medicine; Visit Provider Physician Assistant | DX: M76.892 Other specified enthesopathies of left lower limb, excluding foot (principal) | CPT/HCPCS: 97110; 97140; 97161 ==

== ENCOUNTER 2023-09-20 08:14 | Outpatient (REF) | payer OTHER, SELFPAY ==
[2023-09-20 08:29] LABS: MANUAL DIFF FLAG NO
[2023-09-20 08:44] LABS: Basophils Absolute Auto 0.1 X10*3/uL (0.0-0.2); Basophils Percent Auto 1.1 % (0-2); Eosinophils Absolute Auto 0.4 X10*3/uL (0.0-0.4); Eosinophils Percent Auto 6.4 % (0-4); Hematocrit 43.1 % (42.0-52.0); Hemoglobin 15.1 g/dl (14.0-18.0); Imm Gran Abs Auto 0.03 X10*3/uL (0.00-0.03); Imm Gran Pct Auto 0.5 % (0.0-0.4); Lymphocytes Absolute Auto 2.4 X10*3/uL (1.2-4.9); Lymphocytes Percent Auto 37.7 % (20-40); Mean Corpuscular Hemoglobin 31.4 pg (27.0-33.0); Mean Corpuscular Volume 89.6 fL (80.0-98.0); Mean Platelet Volume 10.7 fL (9.4-12.4); Monocytes Absolute Auto 0.5 X10*3/uL (0.1-1.2); Monocytes Percent Auto 7.2 % (2-11); Neutrophils Absolute Auto 2.9 x10*3/uL (2.0-8.3); Neutrophils Percent Auto 47.1 % (45-73); Platelet Count 162 X10*3/uL (160-400); Red Blood Count 4.81 X10*6/uL (4.60-5.80); Red Cell Distribution Width 12.7 % (11.0-16.0); White Blood Count 6.2 X10*3/uL (4.8-10.8)
[2023-09-20 08:50] LABS: Estimated Average Glucose 131 mg/dL; Hemoglobin A1c % 6.2 % (<6.0)
[2023-09-20 09:29] LABS: Alanine Aminotransferase 26 U/L (0-40); Albumin Level 4.4 g/dL (3.5-5.0); Alkaline Phosphatase 81 U/L (39-117); Anion Gap 11 (12-20); Aspartate Amino Transferase 20 U/L (5-37); Bilirubin Total 0.4 mg/dL (0.0-1.0); Blood Urea Nitrogen 12 mg/dL (9-16); Calcium 9.6 mg/dL (8.4-10.2); Carbon Dioxide 27 mmol/L (22-29); Chloride 106 mmol/L (96-108); Cholesterol 164 mg/dL (<200); Estimated Glomerular Filt Rate > 60; Glucose Random 151 mg/dL (60-115); HDL Cholesterol 47 mg/dL (>40); LDL Cholesterol Calculated 71 mg/dL (<100); Potassium 3.9 mmol/L (3.3-5.1); Sodium 140 mmol/L (135-145); Total Protein 7.3 g/dL (6.5-8.0); Triglycerides 231 mg/dL (<150)
[2023-09-20 09:34] LABS: Creatinine Urine 59.51 mg/dL; Microalbumin Urine < 5.0 mg/L
[2023-09-20 09:41] LABS: Prostate Specific Antigen Scr 0.48 ng/mL (<0.05-4.0)
== END 2023-09-20 08:15 | disposition home or self-care (01) ==
LOC: HO.LAB 08:14
PROVIDERS: PCP Internal Medicine; Visit Provider Internal Medicine
DX: Z12.5 Encounter for screening for malignant neoplasm of prostate (principal); E11.9 Type 2 diabetes mellitus without complications; E78.00 Pure hypercholesterolemia, unspecified; I10 Essential (primary) hypertension; N40.1 Benign prostatic hyperplasia with lower urinary tract symptoms
CPT/HCPCS: 36415; 80053; 80061; 82570; 83036; 84153; 85025

== ENCOUNTER 2023-12-16 09:02 | Outpatient (REF) | payer OTHER, SELFPAY ==
[2023-12-16 10:14] LABS: Estimated Average Glucose 143 mg/dL; Hemoglobin A1c % 6.6 % (<6.0)
[2023-12-16 10:48] LABS: Cholesterol 150 mg/dL (<200); HDL Cholesterol 49 mg/dL (>40); LDL Cholesterol Calculated 66 mg/dL (<100); Triglycerides 176 mg/dL (<150)
== END 2023-12-16 09:03 | disposition home or self-care (01) ==
LOC: HO.LAB 09:02
PROVIDERS: PCP Internal Medicine; Visit Provider Internal Medicine
DX: Z00.00 Encounter for general adult medical examination without abnormal findings (principal); E11.9 Type 2 diabetes mellitus without complications; E78.2 Mixed hyperlipidemia; M17.0 Bilateral primary osteoarthritis of knee
CPT/HCPCS: 36415; 80061; 83036; 84443

== ENCOUNTER 2024-03-15 07:07 | Outpatient (REF) | payer OTHER, SELFPAY ==
[2024-03-15 08:32] LABS: Prostate Specific Antigen 0.42 ng/mL (<0.05-4.0)
== END 2024-03-15 07:08 | disposition home or self-care (01) ==
LOC: HO.LAB 07:07
PROVIDERS: PCP Internal Medicine; Visit Provider Urology
DX: Z12.5 Encounter for screening for malignant neoplasm of prostate (principal); N40.1 Benign prostatic hyperplasia with lower urinary tract symptoms
CPT/HCPCS: 36415; 84153

== ENCOUNTER 2024-04-04 13:35 | Outpatient (AMB) | payer OTHER, SELFPAY ==
--- NOTE | 2024-04-04 14:04 | MHC.OFFVIS ---
Intake Visit Reasons: 1y/PSA Intake Note: Patient presents for follow up visit on: BPH, Erectile Dysfunction, and PSA lab results PSA: 0.42 Urology Med:Tamsulosin Antibiotic Allergy: Clindamycin Blood Thinner: Aspirn [facility] PVR: 29ml's Tie Maker Required: No Accompanied by: Self / Same As Patient Allergies clindamycin Allergy (Mild, Verified 04/04/24 19:46) Severe Headache lactose [Lactose] Adverse Reaction (Mild, Verified 04/04/24 19:46) LACTOSE INTOLERANT SEASONAL ALLERGIES Allergy (Intermediate, Uncoded 04/04/24 19:46) SNEEZING Medication List - Last Reconciled 04/04/24 by LASHAWN Chiu-FABBY acetaminophen 650 mg (2 x 325 mg) PO QID PRN aspirin 325 mg PO DAILY atorvastatin 40 mg PO DAILY benztropine 0.5 mg PO BID blood sugar diagnostic (FreeStyle Lite Strips) As directed apmttlahow-nwnlvklcjotav-ksan 50-325-40 mg 1 cap PO Q6H PRN ergocalciferol (vitamin D2) (Vitamin D2) 1,250 mcg PO QWEEK fluoxetine 40 mg PO QAM ibuprofen 600 mg PO TID ibuprofen 800 mg PO Q8H PRN 30 days lancets (FreeStyle Lancets) As directed lidocaine 5% 1 patch topical DAILY PRN lisinopril 20 mg PO DAILY loratadine 10 mg PO DAILY lorazepam 0.5 mg PO BID PRN metformin ER 750 mg PO BID metoprolol succinate ER 100 mg PO DAILY omeprazole 20 mg PO DAILY perphenazine 4 mg PO BEDTIME perphenazine 8 mg PO BID tamsulosin 0.4 mg PO DAILY 90 days trazodone 200 mg PO BEDTIME PRN ziprasidone HCl 80 mg PO BID HPI Comments Details: Phu is a 53-year-old male patient of Dr. Arango. He has a past medical history of BPH, ED, migraines, schizophrenia, GERD, diabetes, and hypertension. He presents to the office today for follow-up of his lower urinary tract symptoms and erectile dysfunction. In discussion with the patient today he reports to be doing and feeling well. Reports since his last office visit here approximately 1 year ago he has had no bothersome urinary issues or concerns. He reports be happy with his current voiding parameters on 0.4 mg of Flomax. Recent PSA results reviewed with the patient today. PSAs are as follows: 04/15 0.5, 09/18 0.5, 03/18 0.4 He discusses having looked at purchasing penile vacuum pump as recommended by Dr. Valdivia during last office visit. In office model was reviewed. He denies urinary urgency, urinary frequency, incontinence, nocturia, hematuria, dysuria, foul smelling urine, changes to urinary stream, flank pain, fever, and or chills. Discussed and stressed the importance of managing diabetes for improvement in urological issues as well as for overall health and well-being. In office urinalysis results reviewed with the patient today. PVR 29mls. He otherwise offers no other issues or concerns at this time. [facility] Medical History BPH (benign prostatic hyperplasia) Erectile dysfunction Migraine Schizophrenia GERD (gastroesophageal reflux disease) Shortness of breath BPH loc w urin obs/LUTS Diabetes mellitus Essential hypertension Family History Father No problems noted. Mother Heart failure CVD (cardiovascular disease) Stroke Social History Current occupational status: disabled Review of Systems Const All systems reviewed & are unremarkable except as noted in HPI and below Physical Exam Const General: cooperative, healthy appearing, comfortable, no acute distress, well developed, alert and awake Nutritional Appearance: overweight Orientation/consciousness: patient oriented x3 Limitations: no limitations HEENT Head: Yes normal to inspection, Yes normocephalic and Yes atraumatic Ears: hearing grossly normal bilaterally Eyes General: appearance normal, both eyes and all related structures Neck Neck: Yes normal visual inspection and Yes trachea midline Chest Chest palpation & inspection: normal inspection of the chest Resp Effort & Inspection: normal respiratory effort and able to speak in complete sentences Cardio Rate: regular rate GI Inspection: Yes normal to inspection General: Yes no CVA tenderness Back/Spine/Pelvis Back: no CVA tenderness Skin General skin exam: no rashes or lesions noted Neuro General: patient oriented x3 Extrem General: Yes normal to inspection Psych Appearance: grossly normal and well kempt Mental Status: mental status grossly normal Speech and movement: Normal speech and movement present and Clear speech present Affect: normal affect Attitude: cooperative Thought process: Normal thought process present Thought content: Normal thought content present Insight: Fair insight present (Psych) Judgement: Fair judgement present (Psych) Office Procedures Post Void Residual Post Residual Void Post Void Residual (PVR): 29 [id number] Void Residual by ultrasound Results AMB Urinalysis, Automated UA Leukoctes 0 Geo/uL Last Edit by [employer] on 04/04/24 14:50 UA Nitrite Last Edit by [employer] on 04/04/24 14:50 UA Urobilinogen 0.2 mg/dL Last Edit by ZYB on 04/04/24 14:50 UA Protein 0 mg/dL Last Edit by ZYB on 04/04/24 14:50 UA pH 6.0 Last Edit by ZYB on 04/04/24 14:50 UA Blood 0 Freedom/uL Last Edit by ZYB on 04/04/24 14:50 UA Specific [place] 1.015 Last Edit by ZYB on 04/04/24 14:50 UA Ketone Last Edit by ZYB on 04/04/24 14:50 UA Bilirubin 0 mg/dL Last Edit by ZYB on 04/04/24 14:50 UA Glucose 0 mg/dL Last Edit by ZYB on 04/04/24 14:50 Results Reviewed Results Reviewed: Laboratory Last Values Urine pH (Auto) 6.0 04/04/24 14:48 Specific [place] (Auto) 1.015 04/04/24 14:48 Urine Protein (Auto) 0 mg/dL 04/04/24 14:48 Glucose (UA)(Auto) 0 mg/dL 04/04/24 14:48 Urine Blood (Auto) 0 [place]/uL 04/04/24 14:48 Urine Bilirubin (Auto) 0 mg/dL 04/04/24 14:48 Urine Urobilinogen (Auto) 0.2 mg/dL 04/04/24 14:48 Leukocyte Esterase (Auto) 0 Geo/uL 04/04/24 14:48 Assessment & Plan Assessment & Plan (1) Erectile dysfunction associated with type 2 diabetes mellitus: Code(s): E11.69 - Type 2 diabetes mellitus with other specified complication; N52.1 - Erectile dysfunction due to diseases classified elsewhere Category: Medical (2) BPH loc w urin obs/LUTS: Code(s): N40.1 - Benign prostatic hyperplasia with lower urinary tract symptoms Category: Medical Plan In office urinalysis results reviewed with the patient today; as noted above. PVR 29 mL. Recent PSA results reviewed with the patient today; as noted above. Patient reports be happy with current voiding parameters on 0.4 mg of Flomax; refills provided. Patient currently denies any bothersome urinary issues or concerns. Discussed, educated, and stressed the importance of managing diabetes for improvement urological issues as well as overall health and well-being. Will obtain PSA in 1 year. Follow-up in 1 year with PSA and PVR; or sooner with any issues, concerns, and or questions. Orders: Orders AMB Urinalysis Automated Today Z13.9 - Encounter for screening, unspecified AMB Post Void Residual by ultrasound Today N40.1 - Benign prostatic hyperplasia with lower urinary tract symptoms Prostate Specific Antigen 1 Year N40.1 - Benign prostatic hyperplasia with lower urinary tract symptoms Medications: Refilled tamsulosin 0.4 mg PO DAILY 90 days 90 caps 3RF N40.1 - Benign prostatic hyperplasia with lower urinary tract symptoms Patient Instructions: The patient had an opportunity to ask questions regarding the treatment plan. All questions were answered. Physical exam, labs, and imaging were discussed and reviewed in detail. As well as risks, benefits, and discussion of treatment choices. No major barriers to understanding were identified. The patient expressed understanding and agreement with the above treatment plan. The patient was made aware they should contact our office by phone for worsening of their current condition, the appearance of new symptoms, or with any questions or concerns. Compliance is encouraged with any medications and follow up testing that is ordered. It is a privilege to be allowed the opportunity to participate in? your urological care.? Again, if you have any questions or concerns If you have any questions or concerns please do not hesitate to contact me. The office is [phone]. This note is constructed using voice recognition software. While every effort has been made to ensure accuracy risk management analyst errors may have been included. Yours sincerely, KAILEY Chiu Coding Level of Care Code Est Pt Level 3 (18368) Complex EM visit Add On G2211 Diagnoses Erectile dysfunction associated with type 2 diabetes mellitus E11.69; N52.1 BPH loc w urin obs/LUTS N40.1 CPT Codes Post Residual Void - PVR CPT Code: 93522-Jwzf Void Residual by ultrasound ([id number])
== END 2024-04-04 14:38 | disposition home or self-care (01) ==
PROVIDERS: PCP Internal Medicine; Visit Provider Nurse Practitioner Family
DX: E11.69 Type 2 diabetes mellitus with other specified complication (principal); N52.1 Erectile dysfunction due to diseases classified elsewhere; N40.1 Benign prostatic hyperplasia with lower urinary tract symptoms; Z13.9 Encounter for screening, unspecified
CPT/HCPCS: 99213; G2211

== ENCOUNTER → 2024-04-04 13:35 | Outpatient (BNVA) | payer OTHER, SELFPAY | PROVIDERS: PCP Internal Medicine; Visit Provider Nurse Practitioner Family | DX: N40.1 Benign prostatic hyperplasia with lower urinary tract symptoms (principal); N13.8 Other obstructive and reflux uropathy; E11.69 Type 2 diabetes mellitus with other specified complication; N52.1 Erectile dysfunction due to diseases classified elsewhere | CPT/HCPCS: 51798; 81003; 99212 ==

== ENCOUNTER 2024-04-12 08:06 | Outpatient (REF) | payer OTHER, SELFPAY ==
[2024-04-12 10:14] LABS: Alanine Aminotransferase 31 U/L (0-40); Albumin Level 4.4 g/dL (3.5-5.0); Alkaline Phosphatase 84 U/L (39-117); Anion Gap 13 (12-20); Aspartate Amino Transferase 25 U/L (5-37); Bilirubin Total 0.7 mg/dL (0.0-1.0); Blood Urea Nitrogen 10 mg/dL (9-16); Calcium 9.4 mg/dL (8.4-10.2); Carbon Dioxide 26 mmol/L (22-29); Chloride 107 mmol/L (96-108); Estimated Glomerular Filt Rate > 60; Glucose Random 188 mg/dL (60-115); Potassium 4.2 mmol/L (3.3-5.1); Sodium 142 mmol/L (135-145); Total Protein 7.4 g/dL (6.5-8.0)
[2024-04-12 11:26] LABS: Estimated Average Glucose 163 mg/dL; Hemoglobin A1c % 7.3 % (<6.0); Total Hemoglobin (HGBA1C) 3874.6138 umol/L
== END 2024-04-12 08:07 | disposition home or self-care (01) ==
LOC: HO.LAB 08:06
PROVIDERS: PCP Internal Medicine; Visit Provider Internal Medicine
DX: E11.9 Type 2 diabetes mellitus without complications (principal); E78.00 Pure hypercholesterolemia, unspecified; I10 Essential (primary) hypertension; M22.2X2 Patellofemoral disorders, left knee; R00.0 Tachycardia, unspecified
CPT/HCPCS: 36415; 80053; 83036

== ENCOUNTER 2025-01-03 08:39 | Outpatient (REF) | payer OTHER, SELFPAY ==
--- OUTSIDE RECORDS SUMMARY | 2025-01-03 08:56 | XMS_ITS | Clinical Summary ---
Author Organization [employer] Address [address] [place] [address] 7[address] [place] [address] Care Team Providers Care Teller Name Role Phone Unavailable Primary Care Provider Unavailabl e Social History Tobacco Use Types Packs/Day Years Used Date Smoking Tobacco: Never Assessed Sex and Gender Information Value Date Recorded Sex Assigned at Male 05/25/2022 10:14 AM EDT Legal Sex Male 10:14 AM EDT Gender Identity Male 05/25/2022 10:14 AM EDT Sexual Orientation Choose not to disclose 2021 10:14 AM EDT Last Filed Vital Signs Vital Sign Reading Time Taken Comments Blood Pressure 132/74 04/11/2021 12:09 AM EDT Pulse 104 04/11/2021 12:09 AM EDT Temperature - - Respiratory Rate - - Oxygen Saturation - - Inhaled Oxygen Concentration - - Weight 108 kg (238 lb 6.4 oz) 09/18/2019 12:02 A M EST Height 167.6 cm (5' 6 ) 09/18/2019 12:02 AM EST Body Mass Index 38.48 09/18/2019 12:02 AM EST Plan of Treatment Health Maintenance Due Date Last Done Comments CT Colonography 1968 Colonoscopy 1968 Colorectal Cancer Screening 1968 Depression Screening 1968 FIT DNA/Cologuard 1968 FIT 1968 FOBT 1968 Sigmoidoscopy 1968 Disability Screening 1968 Alcohol/Substance Use Screening 1980 Tobacco Screening 1980 Hepatitis B Vaccines (1 of 3 - 19+ 3-dose series) 11/25/1987 Pneumococcal Vaccine: 50+ Years (2 of 2 - PCV) 2018 03/29/2012 Zoster Vaccines (1 of 2) 2018 DTaP/Tdap/Td Vaccines (2 - Td or Tdap) 06/05/2021 06/05/2011, 02/26/1999 COVID-19 Vaccine (2 - season) 2024 04/07/2021 Influenza Vaccine (Season Ended) 2025 04/25/2020, 05/15/2019, 04/27/2018, Additional history exists Lipid Panel 02/04/2026 02/04/2021 RSV Patients and Patients Aged 60 years or older (1 - 1-dose 75+ series) 11/25/2043 HIB Vaccines Aged Out No longer eligi ble based on patient's age to complete this topic HPV Vaccines Aged Out No longer eligi ble based on patient's age to complete this topic Hepatitis A Vaccines Aged Out No long er eligible based on patient's age to complete this topic IPV Vaccines Aged Out No longer eligi ble based on patient's age to complete this topic Meningococcal B Vaccine Aged Out No l onger eligible based on patient's age to complete this topic Meningococcal Vaccine Aged Out No natalee pa eligible based on patient's age to complete this topic RSV under 20 months Aged Out No longe r eligible based on patient's age to complete this topic Rotavirus Vaccines Aged Out No longer eligible based on patient's age to complete this topic Procedures Procedure Name Priority Date/Time Associated Diagnosis Comments LIPID PANEL, STANDARD Routine 02/04/2021 9:18 AM EDT from Last 3 Months or Most Recently Relevant to Health Maintenance Results * (ABNORMAL) LIPID PANEL, STANDARD (02/04/2021 9:18 AM EDT) Chol/HDLC Ratio 2.9 <5.0 (calc) [facility] Cholesterol, Total 106 <200 mg/dL [facility] HDL Cholesterol 37(L) > OR = 40 mg/dL [facility] LDL Cholesterol 44 mg/dL (calc) [facility] Comment: Reference range: <100 ?? Desirable range <100 mg/dL for primary prevention; ?? <70 mg/dL for patients with CHD or diabetic patients ?? with > or = 2 CHD risk factors. ?? LDL-C is now calculated using the Aaron-Leal ?? calculation, which is a validated novel method providing ?? better accuracy than the Friedewald equation in the ?? estimation of LDL-C. ?? Aaron SS et al. NALDO. 2013;310(19): 8094-0158 ?? (http://CaptiveMotion.AppArchitect/faq/EIU121) Non-HDL Cholesterol 69 <130 mg/dL (calc) [facility] Comment: For patients with diabetes plus 1 major ASCVD risk ?? factor, treating to a non-HDL-C goal of <100 mg/dL ?? (LDL-C of <70 mg/dL) is considered a therapeutic ?? option. Triglycerides 168(H) <150 mg/dL [facility] 02/04/2021 9:18 AM EDT us Ruben Becerra [facility] LAB BLOOD ORDERABLES Final Res ult [facility] [address] from Last 3 Months or Most Recently Relevant to Health Maintenance
[2025-01-03 09:01] LABS: MANUAL DIFF FLAG NO
[2025-01-03 09:59] LABS: Basophils Absolute Auto 0.1 X10*3/uL (0.0-0.2); Basophils Percent Auto 0.9 % (0-2); Eosinophils Absolute Auto 0.4 X10*3/uL (0.0-0.4); Eosinophils Percent Auto 6.3 % (0-4); Hematocrit 42.5 % (42.0-52.0); Hemoglobin 15.6 g/dl (14.0-18.0); Imm Gran Abs Auto 0.01 X10*3/uL (0.00-0.03); Imm Gran Pct Auto 0.2 % (0.0-0.4); Lymphocytes Absolute Auto 2.1 X10*3/uL (1.2-4.9); Lymphocytes Percent Auto 32.5 % (20-40); Mean Corpuscular HGB Conc 36.7 g/dl (31.0-36.0); Mean Corpuscular Volume 89.9 fL (80.0-98.0); Mean Platelet Volume 11.2 fL (9.4-12.4); Monocytes Absolute Auto 0.5 X10*3/uL (0.1-1.2); Monocytes Percent Auto 7.8 % (2-11); Neutrophils Absolute Auto 3.4 x10*3/uL (2.0-8.3); Neutrophils Percent Auto 52.3 % (45-73); Platelet Count 169 X10*3/uL (160-400); Red Blood Count 4.73 X10*6/uL (4.60-5.80); Red Cell Distribution Width 12.9 % (11.0-16.0); White Blood Count 6.5 X10*3/uL (4.8-10.8)
[2025-01-03 10:13] LABS: Estimated Average Glucose 148 mg/dL; Hemoglobin A1c % 6.8 % (<6.0)
[2025-01-03 10:24] LABS: Alanine Aminotransferase 29 U/L (0-40); Albumin Level 4.6 g/dL (3.5-5.0); Alkaline Phosphatase 72 U/L (39-117); Anion Gap 14 (12-20); Aspartate Amino Transferase 37 U/L (5-37); Bilirubin Total 0.8 mg/dL (0.0-1.0); Blood Urea Nitrogen 9 mg/dL (9-16); Calcium 9.5 mg/dL (8.4-10.2); Carbon Dioxide 23 mmol/L (22-29); Chloride 104 mmol/L (96-108); Cholesterol 145 mg/dL (<200); Estimated Glomerular Filt Rate > 60; Glucose Random 192 mg/dL (60-115); HDL Cholesterol 39 mg/dL (>40); LDL Cholesterol Calculated 53 mg/dL (<100); Potassium 3.9 mmol/L (3.3-5.1); Sodium 137 mmol/L (135-145); Total Protein 7.1 g/dL (6.5-8.0); Triglycerides 266 mg/dL (<150)
[2025-01-03 11:10] LABS: Creatinine Urine 65.17 mg/dL; Microalbum/Creatinine Ratio Ur 7.6 ug/mg cr (<30)
== END 2025-01-03 08:40 | disposition home or self-care (01) ==
LOC: HO.LAB 08:39
PROVIDERS: PCP Internal Medicine; Visit Provider Internal Medicine
DX: Z00.01 Encounter for general adult medical examination with abnormal findings (principal); E78.00 Pure hypercholesterolemia, unspecified; I10 Essential (primary) hypertension
CPT/HCPCS: 36415; 80053; 80061; 82043; 82570; 83036; 85025

== ENCOUNTER 2025-03-23 09:27 | Outpatient (REF) | payer OTHER, SELFPAY ==
--- OUTSIDE RECORDS SUMMARY | 2023-09-30 11:15 | XMS_ITS ---
Author Organization [facility] Address [address] [place] [address] Care Team Providers Care Paper Bag Press Operator Name Role Phone Pema Arango Primary Care Provider Unavailab Patel Ring Jr Unavailable [phone] REASON FOR VISIT Patient presents today for a discuss screening colonoscopy Encounters Encounter Location Date Provider Diagnosis [facility] [address] [place] [address] 09/30/2023 Patel Cronin Jr Plan Of Treatment No Information Progress Notes * LIS CIDDOB:1970 (54 yo M)Acc No.[id number]:09/30/2023 Progress Notes Patient: LIS KAUR Provider: Hernan Cronin MD :1970 A ge:52 Y S ex:Male Date:09/30/2023 Address:[address] [place] [address] [address] [place] [facility] Pcp:Pema Arango Subjective: * Chief Complaints: * 1 . Patient presents today for a discuss screening colonoscopy. * Medical History: Objective: * Vitals: Assessment: Plan: * Treatment: * * The named appointment provid er may or may not be the originator of this progress note, and it is not deemed complete until electronically signed by the appointment provider. Sign off status: Pending * Provider: Hernan Cronin MD Date: 09/30/2023 Generated for Renetta aguillon/Quinn/Giselaitting on: 0 03/23/2025 10:15 AM EDT
--- OUTSIDE RECORDS SUMMARY | 2024-01-20 09:55 | XMS_ITS ---
Author Organization [facility] Address [address] [place] [address] Care Team Providers Care Skilled Nursing Facility Counselor Name Role Phone Pema Arango Primary Care Provider Unavailab Patel Ring Jr Unavailable REASON FOR VISIT Patient presents today for a discuss screening colonoscopy Encounters Encounter Location Date Provider Diagnosis [facility] [address] [place] [address] 01/20/2024 Patel Cronin Jr Plan Of Treatment No Information Progress Notes * LIS CIDDOB:1970 (54 yo M)Acc No.[id number]:01/20/2024 Progress Notes Patient: LIS KAUR Provider: Hernan Cronin MD :1970 A ge:53 Y S ex:Male Date:01/20/2024 Address:[address] [place] [address] [address] [place] [id number] Pcp:Pema Arango Subjective: * Chief Complaints: * [...] 01/20/2024 Generated for Renetta aguillon/Quinn/Giselaitting on: 0 03/23/2025 10:15 AM EDT
--- OUTSIDE RECORDS SUMMARY | 2025-03-23 10:15 | XMS_ITS | Patient Health Record ---
Author Organization [facility] Address [address] [place] [address] Care Team Providers Care College Counselor Name Role Phone Pema Arango Primary Care Provider Unavailab Patel Ring Jr Unavailable Reason For Referral No Information Plan Of Treatment No Information Insurance Providers Payer Name Payer Address Payer Phone Subscriber Number Group Number Insured Name Patient Relationship to Insured Coverage Start Date Coverage End Date [facility] [address] [address] [place], [place] [id number] LIS CID Self - patient is the insured
--- OUTSIDE RECORDS SUMMARY | 2025-03-23 10:16 | XMS_ITS ---
Author Name [facility] Organization Unknown Care Team Organization Name Specialty Phone Email Start Date End [facility]
[2025-03-23 11:38] LABS: Prostate Specific Antigen 0.56 ng/mL (<0.05-4.0)
== END 2025-03-23 09:28 | disposition home or self-care (01) ==
LOC: HO.LAB 09:27
PROVIDERS: PCP Internal Medicine; Visit Provider Nurse Practitioner Family
DX: N40.1 Benign prostatic hyperplasia with lower urinary tract symptoms (principal)
CPT/HCPCS: 36415; 84153

== ENCOUNTER 2025-04-04 14:00 | Outpatient (AMB) | payer OTHER, SELFPAY ==
--- OUTSIDE RECORDS SUMMARY | 2024-01-20 09:55 | XMS_ITS ---
Author Organization [facility] Address [address] [place] [address] Care Team Providers Care Can Reconditioner Name Role Phone Pema Arango Primary Care Provider Unavailab Patel Ring Jr Unavailable REASON FOR VISIT Patient presents today for a discuss screening colonoscopy Encounters Encounter Location Date Provider Diagnosis [facility] [address] [place] [address] 01/20/2024 Patel Cronin Jr Plan Of Treatment No Information Progress Notes * LIS CIDDOB:1970 (54 yo M)Acc No.[id number]:01/20/2024 Progress Notes Patient: LIS KAUR Provider: Hernan Cronin MD :1970 A ge:53 Y S ex:Male Date:01/20/2024 Address:[address] [place] [address] [address] [place] [id number] Pcp:Pema Arango Subjective: * Chief Complaints: * [...] Pending * Provider: Hernan Cronin MD Date: 01/20/2024 Generated for Renetta aguillon/Quinn/Giselaitting on: 04/04/2025 05:08 PM EDT
--- NOTE | 2025-04-04 14:27 | A.OFFVIS_ITS ---
Intake Visit Reasons: 1y/PSA/PVR Intake Note: patient presents today for: 1yr/PSA/PVR urology medications: tamsulosin blood thinners: aspirin labs done 03/23/25: PSA 0.56 today's PVR: 0mls Buffet Server Required: No Accompanied by: Self / Same As Patient Allergies clindamycin Allergy (Mild, Verified 04/04/25 14:28) Severe Headache lactose (Lactose) Adverse Reaction (Mild, Verified 04/04/25 14:28) LACTOSE INTOLERANT SEASONAL ALLERGIES Allergy (Intermediate, Uncoded 04/04/25 14:28) SNEEZING HPI Comments Details: Phu is a pleasant male. He is seen for the following urologic conditions - lower urinary tract symptoms - erectile dysfunction Twelve month follow-up PVR 30 cc UA normal Continues with tamsulosin Prior discussion regarding penile pump Lower urinary tract symptoms Current therapy tamsulosin Concurrent medical diagnosis includes diabetes Happy with current urinary performance Effective urinary stream and bladder emptying PSA - 04/15 0.5, 03/19 0.6 No other investigations May follow in 12 months with PVR Erectile dysfunction Secondary to diabetes Not currently using medication Does have vacuum pump Not currently in a relationship [facility] Medical History BPH (benign prostatic hyperplasia) Erectile dysfunction Migraine Schizophrenia GERD (gastroesophageal reflux disease) Shortness of breath BPH loc w urin obs/LUTS Diabetes mellitus Essential hypertension Family History Father No problems noted. Mother Heart failure CVD (cardiovascular disease) Stroke Social History Current occupational status: disabled Office Procedures Post Void Residual Post Residual Void Post Void Residual (PVR): 0 20633-[id number] Void Residual by ultrasound Results AMB Urinalysis, Automated UA Leukoctes 0 Geo/uL Last Edit by EMMA Serrano on 04/04/25 15:37 UA Nitrite Negative Last Edit by EMMA Serrano on 04/04/25 15:37 UA Urobilinogen 3.5 mg/dL Last Edit by EMMA Serrano on 04/04/25 15:3 7 UA Protein 0 mg/dL Last Edit by EMMA Serrano on 04/04/25 15:37 UA pH 6.0 Last Edit by EMMA Serrano on 04/04/25 15:37 UA Blood 0 Freedom/uL Last Edit by Loretta Venegas CCM on 04/04/25 15:37 UA Specific Sanborn 1.010 Last Edit by EMMA Serrano on 04/04/25 15: 37 UA Ketone Negative Last Edit by EMMA Serrano on 04/04/25 15:37 UA Bilirubin 0 mg/dL Last Edit by Loretta Venegas CCM on 04/04/25 15:37 UA Glucose 0 mg/dL Last Edit by Loretta Venegas CCM on 04/04/25 15:37 Assessment & Plan Assessment & Plan Orders: Orders AMB Urinalysis Automated Today Z13.9 - Encounter for screening, unspecified AMB Post Void Residual by ultrasound Today N40.1 - Benign prostatic hyperplasia with lower urinary tract symptoms Medications: Refilled tamsulosin 0.4 mg PO DAILY 90 days 90 caps 3RF N40.1 - Benign prostatic hyperplasia with lower urinary tract symptoms Coding CPT Codes Post Residual Void - PVR CPT Code: 39561-[id number] Void Residual by ultrasound ([id number])
--- OUTSIDE RECORDS SUMMARY | 2025-04-04 17:08 | XMS_ITS | Encounter Summary ---
Author Organization [employer] Address [address] [facility] [address]t [place] [address] Care Team Providers Care Squirrel Worker Name Role Phone Unavailable Primary Care Provider Unavailabl e Encounter Details Date Type Department Care Team (Latest Contact Info) Description 12/22/[address] [facility] CONVERSIONS Dental, Provider, DDS Social History Tobacco Use Types Packs/Day Years Used Date Smoking Tobacco: Never Assessed Sex and Gender Information Value Date Recorded Sex Assigned at Male 05/25/2022 10:14 AM EDT Legal Sex Male 10:14 AM EDT Gender Identity Male 05/25/2022 10:14 AM EDT Sexual Orientation Choose not to disclose 2021 10:14 AM EDT documented as of this encounter Plan of Treatment Not on file documented as of this encounter Visit Diagnoses Not on filedocumented in this encounter
--- OUTSIDE RECORDS SUMMARY | 2025-04-04 17:08 | XMS_ITS | Clinical Summary ---
Author Organization [employer] Address [address] [place] [address] 7t [place] [address] Care Team Providers Care Toilet And Laundry Soap Supervisor Name Role Phone Unavailable Primary Care Provider [...] 06/05/2011, 02/26/1999 COVID-19 Vaccine (2 - season) 2025 04/07/2021 Influenza Vaccine (#1) 2025 0, 05/15/2019, 04/27/2018, Additional history exists Lipid Panel [...] [facility] Comment: Reference range: <100 Desirable range <100 mg/dL for primary prevention; <70 mg/dL for patients with CHD or diabetic patients with > or = 2 CHD risk factors. LDL-C is now calculated using the Bernadette calculation, which is a validated novel method providing better accuracy than the Friedewald equation in the estimation of LDL-C. Aaron SS et al. NALDO. 2013;310(19): 1881-8986 (http://education.Revision Military.com/faq/XVN625) Non-HDL Cholesterol 69 <130 mg/dL (calc) [facility] Comment: For patients with diabetes plus 1 major ASCVD risk factor, treating to a non-HDL-C goal of <100 mg/dL (LDL-C of <70 mg/dL) is considered a therapeutic option. Triglycerides 168(H) <150 mg/dL [facility] 02/04/2021 9:18 AM EDT us Ruben Becerra [employer] LAB BLOOD ORDERABLES Final Res ult [facility] [address] from Last 3 Months or Most Recently Relevant to Health Maintenance
--- OUTSIDE RECORDS SUMMARY | 2025-04-04 17:08 | XMS_ITS | Patient Health Record ---
Author Organization [facility] Address [address] [place] [address] Care Team Providers Care Mechatronics Engineer Name Role Phone Pema Arango Primary Care Provider Unavailab Patel Ring Jr Unavailable [phone] Reason For Referral No Information Plan Of Treatment No Information Insurance Providers Payer Name Payer Address Payer Phone Subscriber Number Group Number Insured Name Patient Relationship to Insured Coverage Start Date Coverage End Date [facility] [address] [address] [place], [place] [id number] LIS CID Self - patient is the insured
--- OUTSIDE RECORDS SUMMARY | 2025-04-04 17:08 | XMS_ITS | Encounter Summary ---
Author Organization [employer] Address [address] [facility] [address]t [place] [address] Care Team Providers Care Greenhouse Transplanter Name Role Phone Unavailable Primary Care Provider Unavailabl e Encounter Details Date Type Department Care Team (Latest Contact Info) Description 09/29/2019 Abstract [facility] CONVERSIONS Dental, Provider, DDS Social History Tobacco [...]
== END 2025-04-04 14:41 | disposition home or self-care (01) ==
LOC: HO.HUSH 14:00
PROVIDERS: PCP Internal Medicine; Visit Provider Urology
DX: Z13.9 Encounter for screening, unspecified (principal)

== ENCOUNTER → 2025-04-04 14:00 | Outpatient (BNVA) | payer OTHER, SELFPAY | PROVIDERS: PCP Internal Medicine; Visit Provider Urology | DX: E11.69 Type 2 diabetes mellitus with other specified complication (principal); N52.1 Erectile dysfunction due to diseases classified elsewhere; N40.1 Benign prostatic hyperplasia with lower urinary tract symptoms; Z79.82 Long term (current) use of aspirin; Z79.899 Other long term (current) drug therapy | CPT/HCPCS: 51798; 81003; 99212 ==

== ENCOUNTER 2025-04-05 08:31 | Outpatient (REF) | payer OTHER, SELFPAY ==
--- OUTSIDE RECORDS SUMMARY | 2024-01-20 09:55 | XMS_ITS ---
Author Organization [facility] Address [address] [place] [address] Care Team Providers Care Hydrotechnical Specialist Name Role Phone Pema Arango Primary Care Provider Unavailab Patel Ring Jr Unavailable [phone] REASON FOR VISIT Patient presents today for a discuss screening colonoscopy Encounters Encounter Location Date Provider Diagnosis [facility] [address] [place] [address] 01/20/2024 Patel Cronin Jr Plan Of Treatment No Information Progress Notes * LIS CIDDOB:1970 (54 yo M)Acc No.[id number]:01/20/2024 Progress Notes Patient: LIS KAUR Provider: Hernan Cronin MD :1970 A ge:53 Y S ex:Male Date:01/20/2024 Address:[address] [place] [address] [address] [place] [id number] Pcp:Pema Arango Subjective: * Chief Complaints: * [...] Date: 01/20/2024 Generated for Renetta aguillon/Quinn/Giselaitting on: 0 04/05/2025 09:34 AM EDT
[2025-04-05 09:20] LABS: Hemoglobin A1C 213.0634 umol/L; Total Hemoglobin (HGBA1C) 3960.5191 umol/L
--- OUTSIDE RECORDS SUMMARY | 2025-04-05 09:34 | XMS_ITS | Clinical Summary ---
Author Organization [employer] Address [address] [place] [address] [address]t [place] [address] Care Team Providers Care Canal Tender Name Role Phone Unavailable Primary Care Provider [...] LDL-C. Aaron SS et al. NALDO. 2013;310(19): 5121-4470 (http://education.Vanu.com/faq/ZHI171) Non-HDL Cholesterol 69 <130 mg/dL (calc) [facility] Comment: For patients with diabetes plus 1 major ASCVD risk factor, treating to a non-HDL-C goal of <100 mg/dL (LDL-C of <70 mg/dL) is considered a therapeutic option. Triglycerides 168(H) <150 mg/dL [facility] 02/04/2021 9:18 AM EDT us Ruben Becerra [employer] LAB BLOOD ORDERABLES Final Res ult [facility] [address] from Last 3 Months or Most Recently Relevant to Health Maintenance
--- OUTSIDE RECORDS SUMMARY | 2025-04-05 09:34 | XMS_ITS | Encounter Summary ---
Author Organization [employer] Address [address] [facility] 7t [place] [address] Care Team Providers Care Search Consultant Name Role Phone Unavailable Primary Care Provider Unavailabl e Encounter Details Date Type Department Care Team (Latest Contact Info) Description 09/29/2019 Abstract [facility] CONVERSIONS Dental, Provider, DDS Social History [...]
--- OUTSIDE RECORDS SUMMARY | 2025-04-05 09:35 | XMS_ITS | Patient Health Record ---
Author Organization [facility] Address [address] [place] [address] Care Team Providers Care Samples And Repairs Preparer Name Role Phone Pema Arango Primary Care Provider Unavailab Patel Ring Jr Unavailable Reason For Referral No Information Plan Of Treatment No Information Insurance Providers Payer Name Payer Address Payer Phone Subscriber Number Group Number Insured Name Patient Relationship to Insured Coverage Start Date Coverage End Date [facility] [address] [address] [place], [place] [id number] LIS CID Self - patient is the insured
--- OUTSIDE RECORDS SUMMARY | 2025-04-05 09:35 | XMS_ITS | Encounter Summary ---
Author Organization [employer] Address [address] [facility] 7t [place] [address] Care Team Providers Care Theater Teacher Name Role Phone Unavailable Primary Care Provider Unavailabl e Encounter Details Date Type Department Care Team (Latest Contact Info) Description 12/22/2018 Abstract [facility] CONVERSIONS Dental, Provider, DDS Social History [...]
[2025-04-05 09:58] LABS: Alanine Aminotransferase 29 U/L (0-40); Albumin Level 4.7 g/dL (3.5-5.0); Alkaline Phosphatase 92 U/L (39-117); Anion Gap 14 (12-20); Aspartate Amino Transferase 27 U/L (5-37); Blood Urea Nitrogen 9 mg/dL (9-16); Calcium 9.4 mg/dL (8.4-10.2); Carbon Dioxide 24 mmol/L (22-29); Chloride 106 mmol/L (96-108); Estimated Glomerular Filt Rate > 60; Potassium 4.0 mmol/L (3.3-5.1); Sodium 140 mmol/L (135-145); Total Protein 7.2 g/dL (6.5-8.0)
== END 2025-04-05 08:32 | disposition home or self-care (01) ==
LOC: HO.LAB 08:31
PROVIDERS: PCP Internal Medicine; Visit Provider Internal Medicine
DX: E11.9 Type 2 diabetes mellitus without complications (principal); E66.813 Obesity, class 3; E78.2 Mixed hyperlipidemia; I10 Essential (primary) hypertension
CPT/HCPCS: 36415; 80053; 83036

== ENCOUNTER 2025-05-08 15:14 | Emergency (ER) | payer OTHER, SELFPAY ==
--- OUTSIDE RECORDS SUMMARY | 2024-01-20 09:55 | XMS_ITS ---
Author Organization [facility] Address [address] [place] [address] Care Team Providers Care Leadership Program Associate Name Role Phone Pema Arango Primary Care Provider Unavailab Patel Ring Jr Unavailable [phone] REASON FOR VISIT Patient presents today for a discuss screening colonoscopy Encounters Encounter Location Date Provider Diagnosis [facility] [address] [place] [address] 01/20/2024 Patel Cronin Jr Plan Of Treatment No Information Progress Notes * LIS CIDDOB:1970 (54 yo M)Acc No.[id number]:01/20/2024 Progress Notes Patient: LIS KAUR Provider: Hernan Cronin MD :1970 A ge:53 Y S ex:Male Date:01/20/2024 Address:[address] [place] [address] [address] [place] [facility] Pcp:Pema Arango Subjective: * Chief Complaints: * [...] Pending * Provider: Hernan Cronin MD Date: 0 01/20/2024 Generated for Renetta aguillon/Quinn/Giselaitting on: 06:43 PM EDT
--- NOTE | ~2025-05-08 | XR_ITS ---
EXAMINATION: XR FOOT, RIGHT CLINICAL INFORMATION: lateral pain after fall COMPARISON: None available. TECHNIQUE: AP, lateral, and oblique views of the right foot. FINDINGS: There is hallux valgus deformity. There is moderate lateral subluxation of the sesamoids. There is moderate asymmetric narrowing of the first MTP joint with subchondral sclerosis and marginal osteophytes. No fracture is identified. XR/XR foot RT min 3V IMPRESSION: Hallux valgus deformity and first MTP joint moderate osteoarthritis Electronically signed by: Cole French MD 05/08/2025 04:09 PM EDT
[2025-05-08 15:37] VITALS: BP 157/88; PULSE 87; RESP 18; TEMP 36.6; O2SAT 98; BMI 37.9
--- NOTE | 2025-05-08 15:37 | ED.GENADULT ---
HPI - General Adult General Chief complaint: Extremity Injury, Lower Stated complaint: ? R foot fx Time Seen by Provider: 05/08/25 16:41 Source: patient, family and old records reviewed Mode of arrival: ambulatory Limitations: no limitations History of Present Illness ED Provider: MADISON PEGUERO narrative: 54 yo male with PMH of BPH, HLD, HTN, headache, GERD, DM, schizophrenia here with c/o striking R foot today on metal frame of bed. His whole weight of foot went onto the frame. No other injury reported. It hurts on the bottom of foot to walk complaint: R foot injury Onset (ago): day(s) (today) Location: right and lower extremity Radiation: non-radiation Severity: moderate Quality: aching Pain Consistency: intermittent Relieving factors: immobilization Exacerbating factors: movement Associated symptoms: denies other symptoms Treatments prior to arrival: none Related Data Home Medications ?Medication ?Instructions ?Recorded ?Confirmed aspirin 325 mg tablet 325 mg PO DAILY 05/06/21 atorvastatin 40 mg tablet 40 mg PO DAILY 05/06/21 benztropine 0.5 mg tablet 0.5 mg PO BID 05/06/21 blood sugar diagnostic (FreeStyle #10 ea 05/06/21 Lite Strips) joaiictodx-kseiimtujektz-skzjwscp 1 cap PO Q6H PRN 05/06/21 50 mg-325 mg-40 mg capsule ergocalciferol (vitamin D2) 1,250 1,250 mcg PO QWEEK 05/06/21 mcg (50,000 unit) capsule (Vitamin D2) fluoxetine 20 mg capsule 40 mg PO QAM 05/06/21 lancets 28 gauge (FreeStyle #100 ea 05/06/21 Lancets) loratadine 10 mg tablet 10 mg PO DAILY 05/06/21 lorazepam 0.5 mg tablet 0.5 mg PO BID PRN 05/06/21 metformin 750 mg tablet,extended 750 mg PO BID 05/06/21 release 24 hr omeprazole 20 mg capsule,delayed 20 mg PO DAILY 05/06/21 release perphenazine 4 mg tablet 4 mg PO BEDTIME 05/06/21 perphenazine 8 mg tablet 8 mg PO BID 05/06/21 trazodone 100 mg tablet 200 mg PO BEDTIME PRN 05/06/21 ziprasidone HCl 80 mg capsule 80 mg PO BID 05/06/21 ibuprofen 600 mg tablet 600 mg PO TID 04/09/22 lisinopril 20 mg tablet 20 mg PO DAILY 04/04/24 metoprolol succinate 100 mg 100 mg PO DAILY 04/04/24 tablet,extended release 24 hr Previous Rx's ?Medication ?Instructions ?Recorded acetaminophen 325 mg capsule 650 mg (2 x 325 mg) PO QID PRN 12/15/22 pain #30 caps lidocaine 5 % topical patch 1 patch topical DAILY PRN pain #15 01/05/23 ea ibuprofen 800 mg tablet 800 mg PO Q8H PRN pain 30 days #90 01/25/23 tabs tamsulosin 0.4 mg capsule 0.4 mg PO DAILY 90 days #90 caps 04/04/25 Allergies Allergy/AdvReac Type Severity Reaction Status Date / Time clindamycin Allergy Mild Severe Verified 05/08/25 15:38 Headache lactose (Lactose) AdvReac Mild LACTOSE Verified 05/08/25 15:38 INTOLERANT SEASONAL ALLERGIES Allergy Intermediate SNEEZING Uncoded 05/08/25 15:38 Review of Systems Review of Systems: Musculoskeletal : positive joint pain, No Myalgias, No Joint Swelling Skin : No Skin lacerations, No rash Neuro : No Weakness, No Numbness, No Loss of Consciousness, No All other systems reviewed and are negative Yes all other systems are reviewed and are negative [facility] Past Medical History Attestation statement: The following information was validated with the patient. Source: old records reviewed Medical History BPH (benign prostatic hyperplasia) Erectile dysfunction Migraine Schizophrenia GERD (gastroesophageal reflux disease) Shortness of breath BPH loc w urin obs/LUTS Diabetes mellitus Essential hypertension Family History Family History Father No problems noted. Mother Heart failure CVD (cardiovascular disease) Stroke Social History Social History Advance Directives: No Advance Directives Information Provided: No Do you have a plan to hurt others: No Plan Current occupational status: disabled Physical Exam ED Vital Signs: Vital Signs - 24 hr 05/08/25 15:37 Temperature 98 F Pulse Rate 87 Respiratory Rate 18 Blood Pressure 157/88 H Pulse Oximetry 98 Oxygen Delivery Method Room Air BMI result Body Mass Index 37.9 Appearance: Alert. Oriented X3. No acute distress. Eyes: Pupils equal, round and reactive to light. ENT: Pharynx normal. Neck: Normal inspection. CVS: Pulses normal. Respiratory: No respiratory distress. Skin: Skin warm and dry. Normal skin color. Extremities: No lower extremity edema. R foot along bottom of foot ttp but no hematoma, he is NV intact, SILT intact, no breaks in skin, pain along plantar fascia and mild swelling Neuro: Oriented X 3. No motor deficit. No sensory deficit. Course Course Course Narrative: This is a rapid medical exam performed by Brisa Melo NP: Additional HPI, ROS, PE not included below will be deferred to primary provider. Patient is a 54y/o M presenting with right lateral foot pain since yesterday. States he fell while changing a curtain, hitting his foot on the metal bed frame. \Plan: xray Procedures Orthopedic Splinting/Casting Injury #1: Side: right Lower Extremity Injury Location: foot Lower Extremity Immobilizer: post-op shoe Additional Comments: NV intact Medical Decision Making Medical Decision Making MDM Narrative: 54 yo male with PMH of BPH, HLD, HTN, headache, GERD, DM, schizophrenia here with c/o R foot pain after direct blow on metal frame on exam he has pulses intact, no deformity, SILT intact mild swelling R bottom of foot will place in shoe and instruct to follow up with PCP Differential Diagnosis Differential Diagnoses: The differential diagnosis associated with the presentation includes contusion, fracture Independent Interpretation I performed an independent interpretation of an: Plain X-Ray (no fx) Radiology Impression Discussion of test interpretation with radiology: I have reviewed the radiologist's reading. Independent Historian Clinical information obtained from an independent historian. History obtained from or confirmed by: Other (family) External Record Review External record reviewed: Outpatient record Prescription Management I considered prescription management with: Pain Medication Discharge Plan Discharge Clinical Impression: Contusion of foot Qualifiers: Encounter type: initial encounter Laterality: right Qualified Code(s): S90.31XA - Contusion of right foot, initial encounter Patient Disposition: Home, Self-Care Instructions: Foot Contusion (ED) Additional Instructions: no broken on xray use post operative shoe for the next 5 days tylenol/ice with towel in between return for any worsening symptoms or concerns. Prescriptions: No Action acetaminophen 325 mg capsule 650 mg PO QID PRN (Reason: pain) Qty: 30 0RF lidocaine 5 % adhesive patch,medicated 1 patch topical DAILY PRN (Reason: pain) Qty: 15 0RF Rx Instructions: leave on most painful area for up to 12 hrs perphenazine 4 mg tablet 4 mg PO BEDTIME omeprazole 20 mg capsule,delayed release(DR/EC) 20 mg PO DAILY (DME) lancets [FreeStyle Lancets] 28 gauge misc See Rx Instructions topical BID Qty: 100 Rx Instructions: As directed fluoxetine 20 mg capsule 40 mg PO QAM (DME) FreeStyle Lite Strips Strip See Rx Instructions Not Applicable BID Qty: 10 Rx Instructions: As directed metformin 750 mg tablet extended release 24 hr 750 mg PO BID loratadine 10 mg tablet 10 mg PO DAILY perphenazine 8 mg tablet 8 mg PO BID trazodone 100 mg tablet 200 mg PO BEDTIME PRN lorazepam 0.5 mg tablet 0.5 mg PO BID PRN aspirin 325 mg tablet 325 mg PO DAILY benztropine 0.5 mg tablet 0.5 mg PO BID atorvastatin 40 mg tablet 40 mg PO DAILY ziprasidone HCl 80 mg capsule 80 mg PO BID pdvnfzguam-akpjblfectfmz-hlkg 50-325-40 mg capsule 1 cap PO Q6H PRN ergocalciferol (vitamin D2) [Vitamin D2] 1,250 mcg (50,000 unit) capsule 1,250 mcg PO QWEEK ibuprofen 600 mg tablet 600 mg PO TID ibuprofen 800 mg tablet 800 mg PO Q8H PRN (Reason: pain) 30 Days Qty: 90 3RF metoprolol succinate 100 mg tablet extended release 24 hr 100 mg PO DAILY lisinopril 20 mg tablet 20 mg PO DAILY tamsulosin 0.4 mg capsule 0.4 mg PO DAILY 90 Days Qty: 90 3RF Print Language: Bahraini
[2025-05-08 17:53] VITALS: BP 157/88; PULSE 87; RESP 18; TEMP 36.6; O2SAT 98
--- OUTSIDE RECORDS SUMMARY | 2025-05-08 18:43 | XMS_ITS | Encounter Summary ---
Author Organization [employer] Address [address] [facility] 7t [place] [address] Care Team Providers Care Sales Recruitment Specialist Name Role Phone Unavailable Primary Care Provider Unavailabl e Encounter Details Date Type Department Care Team (Latest Contact Info) Description 12/22/[address] [facility] CONVERSIONS Dental, Provider, DDS Social History [...]
--- OUTSIDE RECORDS SUMMARY | 2025-05-08 18:43 | XMS_ITS | Patient Health Record ---
Author Organization [facility] Address [address] [place] [address] Care Team Providers Care Circulation Worker Name Role Phone Pema Arango Primary Care Provider Unavailab Patel Ring Jr Unavailable Reason For Referral No Information Plan Of Treatment No Information Insurance Providers Payer Name Payer Address Payer Phone Subscriber Number Group Number Insured Name Patient Relationship to Insured Coverage Start Date Coverage End Date [facility] [address] [address] [place], [place] [id number] LIS CID Self - patient is the insured
--- OUTSIDE RECORDS SUMMARY | 2025-05-08 18:43 | XMS_ITS | Clinical Summary ---
Author Organization [employer] Address [address] [place] [address] [address] [place] [address] Care Team Providers Care [employer] Dean Name Role Phone Unavailable Primary Care Provider [...] LDL-C. Aaron SS et al. NALDO. 2013;310(19): 1366-7338 (http://education.City Notes.com/faq/SJH719) Non-HDL Cholesterol 69 <130 mg/dL (calc) [facility] Comment: For patients with diabetes plus 1 major ASCVD risk factor, treating to a non-HDL-C goal of <100 mg/dL (LDL-C of <70 mg/dL) is considered a therapeutic option. Triglycerides 168(H) <150 mg/dL [facility] 02/04/2021 9:18 AM EDT us Ruben Becerra FOOT ORTHOPEDIST LAB BLOOD ORDERABLES Final Res ult [facility] [address] from Last 3 Months or Most Recently Relevant to Health Maintenance
--- OUTSIDE RECORDS SUMMARY | 2025-05-08 18:43 | XMS_ITS | Encounter Summary ---
Author Organization [employer] Address [address] [facility] [address] [place] [address] Care Team Providers Care Bundle Tier And Labeler Name Role Phone Unavailable Primary Care Provider Unavailabl e Encounter Details Date Type Department Care Team (Latest Contact Info) Description 09/29/[address] [facility] CONVERSIONS Dental, Provider, DDS Social History [...]
== END 2025-05-08 17:54 | disposition home or self-care (01) ==
PROVIDERS: Emergency Provider Emergency Medicine; PCP Internal Medicine
DX: S90.31XA Contusion of right foot, initial encounter (principal); W22.8XXA Striking against or struck by other objects, initial encounter; Y93.89 Activity, other specified; Y92.89 Other specified places as the place of occurrence of the external cause; Y99.8 Other external cause status
CPT/HCPCS: 73630; 99282

== ENCOUNTER → 2025-05-08 15:37 | Outpatient (BNV) | payer OTHER, SELFPAY | PROVIDERS: Emergency Provider Emergency Medicine; PCP Internal Medicine; Visit Provider Radiology Diagnostic Radiology | DX: M19.071 Primary osteoarthritis, right ankle and foot (principal); M20.11 Hallux valgus (acquired), right foot | CPT/HCPCS: 73630 ==

== ENCOUNTER 2025-07-05 12:26 | Outpatient (REF) | payer OTHER, SELFPAY ==
[2025-07-05 14:58] LABS: Hemoglobin A1C 149.8769 umol/L
[2025-07-05 15:53] LABS: Alanine Aminotransferase 33 U/L (0-40); Albumin Level 4.6 g/dL (3.5-5.0); Alkaline Phosphatase 90 U/L (39-117); Anion Gap 12 (12-20); Aspartate Amino Transferase 42 U/L (5-37); Blood Urea Nitrogen 9 mg/dL (9-16); Calcium 9.0 mg/dL (8.4-10.2); Carbon Dioxide 23 mmol/L (22-29); Chloride 103 mmol/L (96-108); Estimated Glomerular Filt Rate > 60; Potassium 4.1 mmol/L (3.3-5.1); Sodium 134 mmol/L (135-145); Total Protein 7.2 g/dL (6.5-8.0)
== END 2025-07-05 12:27 ==
LOC: HO.LAB 12:26
PROVIDERS: PCP Internal Medicine; Visit Provider Internal Medicine
DX: E11.9 Type 2 diabetes mellitus without complications (principal); F20.89 Other schizophrenia; I10 Essential (primary) hypertension; Z68.38 Body mass index [BMI] 38.0-38.9, adult
CPT/HCPCS: 36415; 80053; 83036